=== PATIENT | female | born 2000 | race Caucasian/White ===

== ENCOUNTER 2025-07-08 09:26 | Emergency (ER) | payer OTHER, SELFPAY ==
--- NOTE | ~2025-07-08 | CT_ITS ---
EXAMINATION: CT ANGIOGRAM HEAD AND NECK CLINICAL INFORMATION: 25-year-old female, slurring of speech, numbness of left arm. COMPARISON: None available. TECHNIQUE: Noncontrast axial imaging of the head was performed. This was followed by test bolus sequences and head and neck intravenous bolus administration 70 mL of Omnipaque 350. Helical imaging was performed in the axial plane from the aortic arch to the skull vertex. The data was processed at the sleep lab technologist's workstation for generation of MIP sequences. Angled MIPs and volume rendered reformatted images were also generated at an offline 3D workstation. Stenoses are assessed in accordance with NASCET criteria unless otherwise indicated. This CT examination was performed using dose optimization techniques as appropriate, variously including the following: *Automated exposure control *Adjustment of mA and/or kV according to patient size (this includes techniques or standardized protocols for targeted exams where dose is matched to indication/reason for exam; i.e. extremities or head) *Use of iterative reconstruction technique FINDINGS: NONCONTRAST HEAD CT: There is no evidence of intracranial hemorrhage or extra-axial fluid collection. There is no mass effect, or edema. No CT evidence of acute territorial infarct. Ventricles, sulci, and cisterns are normal in size and configuration for patient age. No hydrocephalus. No midline shift. No significant white matter abnormalities. Normal pituitary. Globes and orbital contents image normally. No extracranial soft tissue abnormalities. The paranasal sinuses, mastoid air cells, and tympanic cavities are normally aerated. No suspicious bony abnormalities. NECK CTA: -AORTIC ARCH: Normal in caliber. Mild atheromatous calcification. Three-vessel branching pattern. -GREAT VESSEL ORIGINS: Widely patent. No stenosis. -RIGHT COMMON CAROTID ARTERY: Normal in course and caliber to the level of the bifurcation. -CERVICAL RIGHT INTERNAL CAROTID ARTERY: Normal opacification without focal stenosis or occlusion. -LEFT COMMON CAROTID ARTERY: Normal in course and caliber to the level of the bifurcation. -CERVICAL LEFT INTERNAL CAROTID ARTERY: Normal opacification without focal stenosis or occlusion. -CERVICAL RIGHT VERTEBRAL ARTERY: Codominant. Normal in course and caliber into the skull base. -CERVICAL LEFT VERTEBRAL ARTERY: Codominant. Normal in course and caliber into the skull base. OTHER, SOFT TISSUES: -No lymphadenopathy or mass. No abnormal fluid collection or soft tissue swelling. -Normal thyroid. -Imaged superior mediastinal structures normal. -Imaged lung apices clear. CTA OF THE BRAIN: -INTRACRANIAL INTERNAL CAROTID ARTERIES: No focal stenosis or occlusion. -RIGHT ANTERIOR CEREBRAL ARTERY: Normal A1 segment.. Normal arborization of the distal segments. -LEFT ANTERIOR CEREBRAL ARTERY: Normal A1 segment.. Normal arborization of the distal segments. -ANTERIOR COMMUNICATING ARTERY: Normal. -RIGHT MIDDLE CEREBRAL ARTERY: Normal M1 segment of the MCA without focal stenosis or occlusion. Normal bifurcation. Normal arborization of the distal segments. -LEFT MIDDLE CEREBRAL ARTERY: Normal M1 segment of the MCA without focal stenosis or occlusion. Normal bifurcation. Normal arborization of the distal segments. -RIGHT VERTEBRAL ARTERY V4: Normal in course and caliber. -LEFT VERTEBRAL ARTERY V4: Normal in course and caliber. -BASILAR ARTERY: Normal without focal stenosis or occlusion. Normal appearance of the proximal superior cerebellar arteries. Normal basilar tip. -RIGHT POSTERIOR CEREBRAL ARTERY: Normal P1 segment. Normal opacification of the distal OCEAN FREIGHT AGENT segments. -LEFT POSTERIOR CEREBRAL ARTERY: Normal P1 segment. Normal opacification of the distal OCEAN FREIGHT AGENT segments. -POSTERIOR COMMUNICATING ARTERIES: Present and patent bilaterally. Normal opacification of the superior sagittal, straight, transverse, and sigmoid sinuses. No venous thrombosis. CT/CT angio head neck IMPRESSION: NON-CONTRAST HEAD CT: 1. No acute intracranial abnormality. No intracranial hemorrhage or mass effect. No CT evidence of acute territorial infarct. No white matter attenuation abnormalities. CTA NECK: 1. No evidence of significant stenosis, occlusion, dissection, or aneurysm in the major cervical arterial vasculature. 2. No venous thrombosis. CTA HEAD: 1. No evidence of significant stenosis, occlusion, dissection, or aneurysm in the major intracranial arterial vasculature. 2. Patent major cortical and dural venous sinuses. Electronically signed by: Mateus Matos MD 07/08/2025 11:31 AM EDT
[2025-07-08 09:36] VITALS: BP 123/87; PULSE 79; RESP 16; TEMP 36.2; O2SAT 99; BMI 25.6
--- NOTE | 2025-07-08 09:47 | PC.NURSE ---
patient presents to the ED after an approx 1 min episode at work where she had slurred speech and left arm weakness witnessed by coworker. patient states she has had a migraine x2days. patient states she is not currently on a migraine medication, has not seen neurology since age 9. patient is alert and oriented x4 ambulatory, patient speech is clear, speaking in clear full sentences. patient face symmetrical. patient has no weakness noted. patient placed on tele monitor, rate in the 90s, normal sinus rhythm. patient states she gets migraine with aura of seeing spots, but no aura today. patient states pain is 5/10.
--- NOTE | 2025-07-08 09:54 | ED_ITS ---
HPI - General Adult General Chief complaint: Headache Stated complaint: slurred speech earlier, mini stroke ? Time Seen by Provider: 07/08/25 09:40 Source: patient, RN notes reviewed and old records reviewed Mode of arrival: ambulatory Limitations: no limitations History of Present Illness ED Provider: TWAN Cunningham HPI narrative: 25-year-old female without significant medical history presents to the ED due to an episode of speech slurring, with left arm numbness and weakness, that lasted approximately 1 minute. Patient states she was at work talking to her co-worker when she noticed slurred speech, difficulty finding words, with left face numbness and left arm numbness and weakness. Patient states her left arm was sitting on lap and noticed it flop to the side and she was unable to move it. Patient sates she has history of migraines and has had mild migraine for past 2 days without aura. Denies chest pain, SOB, visual changes MD complaint: episode of speech slurring, L arm numbness and weakness Related Data Allergies Allergy/AdvReac Type Severity Reaction Status Date / Time Penicillins (PENICILLINS) Allergy Unknown HIVES Verified 07/08/25 09:36 Review of Systems 2 Review of Systems: CONST: Negative for fever, body aches and chills. HENT: Negative for neck pain/stiffness, headache, congestion, sore throat, swelling. EYES: Negative for discharge/pain or vision changes. RESP: Negative for cough/hemoptysis and shortness of breath. CV: Negative chest pain, difficulty breathing, palpitations. ABD: Negative pain, nausea, vomiting. : Negative increase frequency, dysuria, blood in urine or stool. MUSC: Negative for muscle aches, edema. SKIN: Negative rash, lesions/sores. NEURO: Negative dizziness, weakness. POS headache Yes all other systems are reviewed and are negative PMFSH Past Medical History Attestation statement: The following information was validated with the patient. Source: old records reviewed and nursing notes reviewed Social History Social History Advance Directives: No Advance Directives Information Provided: Yes Physical Exam ED Vital Signs: Vital Signs - 24 hr 07/08/25 09:36 07/08/25 11:14 07/08/25 12:00 Temperature 97.1 F 98.1 F Pulse Rate 79 66 76 Respiratory Rate 16 16 18 Blood Pressure 123/87 108/70 109/85 Pulse Oximetry 99 99 98 Oxygen Delivery Method Room Air Room Air BMI result Body Mass Index 25.6 GENERAL APPEARANCE: ?AxOx4, generally well-appearing, no acute distress. HEENT: ?NC, AT. MMM. EOMI, clear conjunctiva, oropharynx clear. NECK: ?Supple without lymphadenopathy.? No stiffness or restricted ROM. HEART:? Normal rate and regular rhythm, normal S1/S2, no m/r/g LUNGS:? CTAB, moving air well. No crackles or wheezes are heard. ABDOMEN: ?Soft, nontender, nondistended with good bowel sounds heard. BACK: No CVAT, no obvious deformity. EXTREMITIES: ?Without cyanosis, clubbing or edema. NEUROLOGICAL: ?Grossly nonfocal. Alert and oriented, moving all 4 extremities. 5/5 strength of upper extremities, 5/5 strength of lower extremities, SILT of UE and LE, no pronator drift, no speech slurring, able to heel and toe walk, ambulating without ataxic gait. NIH scale of 0 Skin: ?Warm and dry without any rash. NIH Stroke Scale Internal: Initial- Upon Arrival Time: 10:05 Level of Consciousness: Alert Level of Consciousness Questions: Answers both questions correctly Level of Consciousness Commands: Performs both tasks correctly Best Gaze: Normal Visual: No visual loss Facial Palsy: Normal Motor Arm (Right): No drift Motor Arm (Left): No drift Motor Leg (Right): No drift Motor Leg (Left): No drift Limb Ataxia: Absent Sensory: Normal Best Language: No aphasia Dysarthia: Normal Extinction and Inattention: No abnormality Score: 0 Medications Administered Discontinued Medications Generic Name Dose Route Start Last Admin Trade Name Freq PRN Reason Stop Dose Admin Lactated Ringer's 1,000 mls @ 999 mls/hr 07/08/25 10:37 07/08/25 12:02 Lr IV 07/08/25 11:37 Infused .Q1H1M ONE Infusion Acetaminophen 1,000 mg in 100 mls @ 400 mls/hr 07/08/25 11:40 07/08/25 12:13 Ofirmev IV 07/08/25 11:54 Infused ONCE ONE Infusion Iohexol 100 ml 07/08/25 10:55 07/08/25 10:56 Iohexol 350 Mg/Ml 100 Ml Infus..Btl IV 07/08/25 10:56 70 ml ONCE ONE Administration Ketorolac Tromethamine 30 mg 07/08/25 11:40 07/08/25 11:46 Ketorolac Tromethamine 30 Mg/Ml Vial IVPUSH 07/08/25 11:41 30 mg ONCE ONE Administration Medical Decision Making Medical Decision Making MDM Narrative: 25-year-old female without significant medical history with 1 minute episode of speech slurring, left arm numbness and weakness, left face numbness that occurred while at work. Patient has had mild migraine over the last 2 days without aura. VS on initial observation- BP 123/87, pulse rate of 79, respiratory rate of 16, afebrile with oral temp of 97.1?, O2 saturation 99% on room air. Physical exam was unremarkable, lungs clear to auscultation bilaterally, cardiac exam with normal rate and rhythm, no murmurs/rubs/gallops, abdomen soft, nondistended, no rigidity, no tenderness. Neuro exam without focal neurological deficits, no upper extremity or lower extremity weakness strength 5/5 of UE and LE bilaterally, SILT intact of both UE and LE, no facial droop, no speech slurring noted, no pronator drift, patient able to perform heel and toe walking without deficit, ambulating without ataxic gait. Plan: Labs, EKG, CT angio head/neck Course EKG reveals normal sinus rhythm, without arrhythmia, lengthened QT, ST- elevation/depression, T-wave abnormality, initial troponin undetectable at >2.7, patient without chest pain- dysrhythmia less likely Labs without leukocytosis/leukopenia, H&H stable, no electrolyte abnormality. HCG quant negative. CTA head/neck negative for acute intracranial abnormality/cervical arterial vasculature. At this time symptoms correlate clinically with hemiplegic migraine. Patient is being medicated with IV fluids, 30 mg IV toradol and 1g IV tylenol for symptoms. Patient had another episode of L lower lip numbness that lasted a few minutes and then resolved. Patients headache is improved at this time. I counseled patient on hemiplegic migraines causing neuological symptoms. I counseled patient to follow up with her PCP and to get established with neurology as I placed consult for her. She feels comfortable to go home for self care. I counseled her on strict return precautions. Patient is in agreement with the plan. Differential Diagnosis Differential Diagnoses: The differential diagnosis associated with the presentation includes Stroke TIA Dysrhythmia Migraine headache Admission/Observation Consideration of admission/observation: Escalation of care including admission/observation considered Lab Data MDM Lab Attestation statement: I reviewed the patient's lab results. 07/08/25 10:07 07/08/25 10:07 Labs: Lab Results 07/08/25 Range/Units 10:07 WBC 8.7 (4.8-10.8) X10*3/uL RBC 4.87 (4.20-5.50) X10*6/uL Hgb 13.8 (12.0-16.0) g/dl Hct 40.9 (37.0-47.0) % MCV 84.0 (80.0-98.0) fL MCH 28.3 (27.0-33.0) pg MCHC 33.7 (31.0-35.0) g/dl RDW 12.4 (11.0-16.0) % Plt Count 259 (160-400) X10*3/uL MPV 10.5 (9.4-12.3) fL Immature Gran % (Auto) 0.2 (0.0-0.4) % Neut % (Auto) 64.4 (45-73) % Lymph % (Auto) 22.5 (20-40) % Gates % (Auto) 7.4 (2-11) % Eos % (Auto) 4.5 H (0-4) % Baso % (Auto) 1.0 (0-2) % Lymph # (Auto) 2.0 (1.2-4.9) X10*3/uL Gates # (Auto) 0.6 (0.1-1.2) X10*3/uL Eos # (Auto) 0.4 (0.0-0.4) X10*3/uL Baso # (Auto) 0.1 (0.0-0.2) X10*3/uL Abs Immat Gran (auto) 0.02 (0.00-0.03) X10*3/uL Absolute Neuts (auto) 5.6 (2.0-8.3) x10*3/uL Absolute Nucleated RBC 0.000 (0.0-0.012) X10*3/uL Nucleated RBC % (auto) 0.0 (0.0-0.2) /100WBC Sodium 140 (135-145) mmol/L Potassium 4.2 (3.3-5.1) mmol/L Chloride 108 (96-108) mmol/L Carbon Dioxide 26 (22-29) mmol/L Anion Gap 10 L (12-20) BUN 6 L (9-16) mg/dL Creatinine 0.58 (0.5-1.4) mg/dL Estim Creat Clear Calc 127.5 Estimated GFR > 60 Random Glucose 87 (60-115) mg/dL Calcium 9.2 (8.4-10.2) mg/dL Magnesium 1.9 (1.6-2.6) mg/dL Total Bilirubin 0.4 (0.0-1.0) mg/dL AST 20 (5-31) U/L ALT 13 (0-31) U/L Alkaline Phosphatase 73 (39-117) U/L Troponin I High Sens < 2.7 (<3.5-17.0) ng/L Total Protein 7.4 (6.5-8.0) g/dL Albumin 4.7 (3.5-5.0) g/dL Beta HCG, Quant < 2 mIU/mL Independent Interpretation I performed an independent interpretation of an: EKG and CT Scan Interpretation: I personally interpreted the EKG which revealed normal sinus rhythm without ST- elevation/depression, T-wave abnormality, lengthened QT, arrhythmia Vent. Rate : 62 BPM Atrial Rate : 62 BPM P-R Int : 154 ms QRS Dur : 78 ms QT Int : 388 ms P-R-T Axes : 36 57 46 degrees QTcB Int : 393 ms Normal sinus rhythm Normal ECG No previous ECGs available I personally interpreted the CTA head/neck which was negative for thrombus, and revealed patent cervical vasculature, I agree with the radiologist's interpretation Radiology Impression Discussion of test interpretation with radiology: I have reviewed the radiologist's reading. Radiologist Impression: CTA head/neck FINDINGS: NONCONTRAST HEAD CT: There is no evidence of intracranial hemorrhage or extra-axial fluid collection. There is no mass effect, or edema. No CT evidence of acute territorial infarct. Ventricles, sulci, and cisterns are normal in size and configuration for patient age. No hydrocephalus. No midline shift. No significant white matter abnormalities. Normal pituitary. Globes and orbital contents image normally. No extracranial soft tissue abnormalities. The paranasal sinuses, mastoid air cells, and tympanic cavities are normally aerated. No suspicious bony abnormalities. NECK CTA: -AORTIC ARCH: Normal in caliber. Mild atheromatous calcification. Three-vessel branching pattern. -GREAT VESSEL ORIGINS: Widely patent. No stenosis. -RIGHT COMMON CAROTID ARTERY: Normal in course and caliber to the level of the bifurcation. -CERVICAL RIGHT INTERNAL CAROTID ARTERY: Normal opacification without focal stenosis or occlusion. -LEFT COMMON CAROTID ARTERY: Normal in course and caliber to the level of the bifurcation. -CERVICAL LEFT INTERNAL CAROTID ARTERY: Normal opacification without focal stenosis or occlusion. -CERVICAL RIGHT VERTEBRAL ARTERY: Codominant. Normal in course and caliber into the skull base. -CERVICAL LEFT VERTEBRAL ARTERY: Codominant. Normal in course and caliber into the skull base. OTHER, SOFT TISSUES: -No lymphadenopathy or mass. No abnormal fluid collection or soft tissue swelling. -Normal thyroid. -Imaged superior mediastinal structures normal. -Imaged lung apices clear. CTA OF THE BRAIN: -INTRACRANIAL INTERNAL CAROTID ARTERIES: No focal stenosis or occlusion. -RIGHT ANTERIOR CEREBRAL ARTERY: Normal A1 segment.. Normal arborization of the distal segments. -LEFT ANTERIOR CEREBRAL ARTERY: Normal A1 segment.. Normal arborization of the distal segments. -ANTERIOR COMMUNICATING ARTERY: Normal. -RIGHT MIDDLE CEREBRAL ARTERY: Normal M1 segment of the MCA without focal stenosis or occlusion. Normal bifurcation. Normal arborization of the distal segments. -LEFT MIDDLE CEREBRAL ARTERY: Normal M1 segment of the MCA without focal stenosis or occlusion. Normal bifurcation. Normal arborization of the distal segments. -RIGHT VERTEBRAL ARTERY V4: Normal in course and caliber. -LEFT VERTEBRAL ARTERY V4: Normal in course and caliber. -BASILAR ARTERY: Normal without focal stenosis or occlusion. Normal appearance of the proximal superior cerebellar arteries. Normal basilar tip. -RIGHT POSTERIOR CEREBRAL ARTERY: Normal P1 segment. Normal opacification of the distal EXECUTIVE STAFF ASSISTANT segments. -LEFT POSTERIOR CEREBRAL ARTERY: Normal P1 segment. Normal opacification of the distal EXECUTIVE STAFF ASSISTANT segments. -POSTERIOR COMMUNICATING ARTERIES: Present and patent bilaterally. Normal opacification of the superior sagittal, straight, transverse, and sigmoid sinuses. No venous thrombosis. CT/CT angio head neck IMPRESSION: NON-CONTRAST HEAD CT: 1. No acute intracranial abnormality. No intracranial hemorrhage or mass effect. No CT evidence of acute territorial infarct. No white matter attenuation abnormalities. CTA NECK: 1. No evidence of significant stenosis, occlusion, dissection, or aneurysm in the major cervical arterial vasculature. 2. No venous thrombosis. CTA HEAD: 1. No evidence of significant stenosis, occlusion, dissection, or aneurysm in the major intracranial arterial vasculature. 2. Patent major cortical and dural venous sinuses. Electronically signed by: Mateus Matos MD 07/08/2025 11:31 AM EDT Dictated By: Mateus Matos MD Signed By: <Electronically signed by Mateus Matos MD in OV> 07/08/25 1131 External Record Review External record reviewed: Inpatient record, Office record and Outpatient record Chronic Conditions Patient?s care impacted by: Other (Migraine) Discharge Plan Discharge Clinical Impression: Headache, hemiplegic migraine Patient Disposition: Home, Self-Care Instructions: Migraine Headache (ED) Additional Instructions: You were evaluated in the ED today after experiencing an episode of speech slurring, left arm numbness, left-sided facial numbness. Your lab work was reassuring no evidence of anemia or electrolyte imbalance. Your EKG revealed normal sinus rhythm, your troponin which is an enzyme in the heart is under stress or damage was negative. CT angiogram of your head and neck was negative for thrombus, intracranial hemorrhage, and revealed patent cervical arteries and veins. I believe your symptoms occurred today from a hemiplegic migraine, which can trigger neurological deficits like weakness, numbness, speech slurring. You were medicated in the department with IV fluids, 30 mg IV Toradol, 1 g IV Tylenol. I will place referral to Neurology for you, you need to call their office they will not call you. Additionally I believe you should follow up with your primary care doctor to ensure your migraines are adequately managed. Please return to the ED if you experience fevers over 100.4?, chest pain, shortness of breath, worsening numbness or tingling of your extremities/face, numbness or tingling occurring in other places, or any new/worsening/concerning symptoms. Referrals: [facility] – [place], [place] Neuro/Sleep [Provider Group] Print Language: Australian
[2025-07-08 10:11] LABS: MANUAL DIFF FLAG NO
[2025-07-08 10:12] LABS: Hematocrit 40.9 % (37.0-47.0); Hemoglobin 13.8 g/dl (12.0-16.0); Imm Gran Abs Auto 0.02 X10*3/uL (0.00-0.03); Imm Gran Pct Auto 0.2 % (0.0-0.4); Lymphocytes Absolute Auto 2.0 X10*3/uL (1.2-4.9); Mean Corpuscular HGB Conc 33.7 g/dl (31.0-35.0); Mean Corpuscular Hemoglobin 28.3 pg (27.0-33.0); Mean Corpuscular Volume 84.0 fL (80.0-98.0); NRBC Abs Auto 0.000 X10*3/uL (0.0-0.012); NRBC Pct Auto 0.0 /100WBC (0.0-0.2); Platelet Count 259 X10*3/uL (160-400); Red Blood Count 4.87 X10*6/uL (4.20-5.50); White Blood Count 8.7 X10*3/uL (4.8-10.8)
--- NOTE | 2025-07-08 10:12 | ECG_ITS ---
Test Reason : WEAKNESS Blood Pressure : */* mmHG Vent. Rate : 62 BPM Atrial Rate : 62 BPM P-R Int : 154 ms QRS Dur : 78 ms QT Int : 388 ms P-R-T Axes : 36 57 46 degrees QTcB Int : 393 ms Normal sinus rhythm Normal ECG No previous ECGs available Referred By: Timi Cunningham Electronically Signed By: SKIP SANTANA
[2025-07-08 10:27] LABS: Alanine Aminotransferase 13 U/L (0-31); Albumin Level 4.7 g/dL (3.5-5.0); Anion Gap 10 (12-20); Aspartate Amino Transferase 20 U/L (5-31); Blood Urea Nitrogen 6 mg/dL (9-16); Calcium 9.2 mg/dL (8.4-10.2); Carbon Dioxide 26 mmol/L (22-29); Chloride 108 mmol/L (96-108); Creatinine Clr Calc Pharmacy 127.5; Estimated Glomerular Filt Rate > 60; Magnesium 1.9 mg/dL (1.6-2.6); Potassium 4.2 mmol/L (3.3-5.1); Sodium 140 mmol/L (135-145); Total Protein 7.4 g/dL (6.5-8.0)
[2025-07-08 10:52] LABS: Alkaline Phosphatase 73 U/L (39-117)
[2025-07-08] MEDS: iohexoL 350 MG/ML 100 ML INFUS..BTL IV (10:56)
[2025-07-08] MEDS: Lactated Ringers 1,000 ML 999 ML IV (10:59)
[2025-07-08 11:14] VITALS: BP 108/70; PULSE 66; RESP 16; TEMP 36.7; O2SAT 99
[2025-07-08 12:00] VITALS: BP 109/85; PULSE 76; RESP 18; O2SAT 98
--- NOTE | 2025-07-08 12:02 | PC.NURSE ---
patient states she felt left sided facial numbness, ED provider called to bedside. patient face symmetrical, left lip feels numb, equal grounds person bilat
[2025-07-08 12:03] LABS: Troponin-I High Sensitivity < 2.7 ng/L (<3.5-17.0)
--- OUTSIDE RECORDS SUMMARY | 2025-07-08 12:48 | XMS_ITS | Clinical Summary ---
Author Organization [facility] Address [address] [place] [address] Care Team Providers Care Cad Engineer Name Role Phone Alvaro Shearer MD Primary Care Provider Allergies Active Allergy Reactions Criticality Noted Date Comments Penicillins Rash 08/04/2016 Medications hydrOXYzine HCL (ATARAX) 10 mg tablet Take 1 Tablet by mouth 3 times daily as needed for Anxiety. 08/01/2024 Active Active Problems Problem Noted Date Diagnosed Date Palpitations 01/28/2021 Overview (10/20/2024): Last Assessment & Plan: We did discuss her palpitations and tachycardia. Is unclear what the etiology of these are at this time. We did discuss that this could be a inappropriate sinus tachycardia. We did discuss that this could be due to atrial arrhythmia. We also discussed that this could be a POTS variant. I did do orthostatics on her in the office and these were normal. Her heart rate stayed stable as well as her blood pressure. She had normal blood work with a normal CBC and TSH. She had a Holter monitor which showed some sinus tachycardia and this is when she had her symptoms but no other arrhythmias. At this point we discussed behavioral modifications that she can follow to help to improve her symptoms. We did discuss that if things worsen she needs to call us and let us know and we will do further evaluation and testing. Her birthday, wedding and nursing test are all going to happen within the next month and hopefully this reduction and stress will help as well. 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 V24, [facility] V28) 08/04/2016 Overview (10/20/2024): Mild pauciarticular JRA Vitamin D deficiency 08/04/2016 Encounters Date Type Department Care Team Description 07/08/2025 Telephone Adult Medicine [address] [address] Jessi Paulino MA from Last 3 Months Immunizations Name Administration Dates Next Due DTaP (Infanrix) 6wks to less than 7yo ,07/05/1999,1998,08/03,1998 [id number] (Pentacel) 2mo to less than 5yo 08/29/2000,04/04/1999,1998,05/31 HPV, Quadrivalent 07/29/2011,08/30/2010,06/20/20 10 Hepatitis A Pediatric (Havri x; Vaqta) 12mo to less than 19yo 07/30/2014,08/12/2013 Hepatitis B Pediatric (Enger ix B; Recombivax HB) to less than 20 yo 08/29/2000,04/04/1999,1998 IPV Inactivated polio (Ipol) 6wks and older 05/05/2002,04/04/1999,1998,05/31 Influenza Quadravalent, MDCK , 0.5ml, preservative free (Flucelvax) 6mo and older 07/31/2023,10/03/2018 Influenza trivalent, 0.5mL, preservative free (Fluarix; FluLaval; Fluzone) ages 6mo and older (Afluria) 3 years and older 08/01/2024,10/13/2016 MMR, measles mumps and rubel la Live (Priorix; M-M-R II) 12mo and older 05/05/2002,07/05/1999 Meningococcal MCV4P 07/30/2014,06/20/2010 Tdap Tetanus diptheria acell ular pertussis (Boostrix; Adacel) 7yo and older 06/18/2019,05/07/2009 Varicella live (Varivax) 12m o and older 05/15/2008,04/04/1999 Surgical History Surgery Date Site/Laterality Comments WISDOM TOOTH EXTRACTION 2022 PROCEDURE: HISTORICAL WISDOM TEETH EXTRACTION; COMMENT: all 4 Medical History Medical History Date Comments 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 V24, [facility] V28) 08/04/2016 DX:JRA (juvenile rheumatoid arthritis) ([facility]); COMMENT: Mild pauciarticular JRA Family History Medical History Relation Name Comments Breast cancer Aunt maternal, BRCA negative Other: hyperlipidemia Father alcoho l No Known Problems Half-Sister 1 mat No Known Problems Half-Sister 2 mat No Known Problems Half-Sister 3 pat No Known Problems Half-Sister 4 pat No Known Problems Maternal Grandfather Breast cancer Maternal Grandmother Hypertension Maternal Grandmother asthma Breast cancer Mother BRCA negative Hypertension Mother anxiety Colon cancer Other 1 maternal second cousin age 42 Breast cancer Other 2 maternal great aunt age 70 No Known Problems Paternal Grandfather no contact Hypertension Paternal Grandmother migrain es Relation Name Status Comments Aunt Alive Father Alive Half-Sister 1 mat Alive Half-Sister 2 mat Alive Half-Sister 3 pat Alive Half-Sister 4 pat Alive Maternal Grandfather Alive Maternal Grandmother Mother Alive Other 1 Other 2 Paternal Grandfather Alive Paternal Grandmother Alive Social History Tobacco Use Types Packs/Day Years Used Date Smoking Tobacco: Never Smokeless Tobacco: Never Alcohol Use Standard Drinks/Week Comments Yes 0 (1 standard drink = 0.6 oz pur e alcohol) Comments Unknown Sex and Gender Information Value Date Recorded Sex Assigned at Not on file Legal Sex Female 1:31 AM EST Gender Identity Not on file Sexual Orientation Not on file Obstetrics History Last Filed Vital Signs Vital Sign Reading Time Taken Comments Blood Pressure 100/60 08/01/2024 2:11 PM EDT Pulse 87 08/01/2024 2:11 PM EDT Temperature - - Respiratory Rate - - Oxygen Saturation - - Inhaled Oxygen Concentration - - Weight 59.6 kg (131 lb 6.4 oz) 08/01/2024 2:11 P M EDT Height 147.3 cm (4' 10 ) 08/01/2024 2:11 PM EDT Body Mass Index 27.46 08/01/2024 2:11 PM EDT Plan of Treatment Health Maintenance Due Date Last Done Comments COVID-19 Vaccine (#1) 2003 Pneumococcal Vaccine: Pediatrics (0 to 5 Years) and At-Risk Patients (6 to 49 Years) (1 of 2 - PCV) 2017 Social Influencers of Health Screening 09/24/2022 Depression Screening 10/22/2024 Influenza Vaccine (#1) 2025 , 07/31/2023, 10/03/2018, Additional history exists Cervical Cancer Screening: Pap Smear 11/13/2026 11/13/2023, 11/13/2023, 11/13/2023 Cholesterol Screening (Lipid Panel) 07/31/2028 07/31/2023 DTaP,Tdap,and Td Vaccines (8 - Td or Tdap) 06/18/2029 06/18/2019, 05/07/2009, 05/05/2002, Additional history exists HIB Vaccines Completed 08/29/2000, 03/22, 1998, Additional history exists Hepatitis B Vaccines Completed 08/29/2000, 04/04/1999, 1998 IPV Vaccines Completed 05/05/2002, 05/2000, 04/04/1999, Additional history exists MMR Vaccines Completed 05/05/2002, 07/05/1999 Varicella Vaccines Completed 05/15/2008, 04/04/1999 HPV Vaccines Completed 07/29/2011, 06/2010, 06/20/2010 Hepatitis A Vaccines Completed 07/30/2014, 08/12/20 Meningococcal ACWY Vaccine Completed 07/30/2014, HIV Screening Completed 10/03/2018 Hepatitis C Screening Completed 10/03/2018 Gonorrhea/Chlamydia Screening Discontinued 11/13/2023 Meningococcal B Vaccine Aged Out No l onger eligible based on patient's age to complete this topic RSV Immunization Patients Under 20 months Aged Out No longer eligible based on patient's age to complete this topic Procedures Procedure Name Priority Date/Time Associated Diagnosis Comments PAP SMEAR Routine 11/13/2023 GONORRHEA/CHLAMYDIA SCRREENING Routine 11/13/2023 LIPID PANEL Routine 07/31/2023 HEPATITIS C SCREENING Routine 10/03/2018 HIV SCREENING Routine 10/03/2018 from Last 3 Months or Most Recently Relevant to Health Maintenance Results * Gonorrhea/Chlamydia Screening (11/13/2023) Gonorrhea/Chla mydia Screening abstracted Historical Provider HEALTH MAINTENANCE Final Result * Pap smear (11/13/2023) 11/13/2023 Narrative HISTORICAL TESTING LAB RESULTING AGENCY - 11/23/2023 8:35 AM EST [id number] THINPREP PAP, IMAGED: NEGATIVE FOR SQUAMOUS INTRAEPITHELIAL LESION AND MALIGNANCY . AIME SCHWARTZ(ASCP) (CASE ELECTRONICALLY SIGNED 11 22 2023) ADEQUACY: SATISFACTORY ENDOCERVICAL/TRANSFORMATION ZONE COMPONENT PRESENT. SOURCE: THINPREP PAP HPV IF ASCUS, CERVICAL, IMAGED CLINICAL INFORMATION: HPV IF DIAGNOSIS OF ASCUS. PAP HX NEGATIVE, [[id number]] Shannon Kay CNM LAB CYTOLOGY ORDERABLES Final R esult HISTORICAL TESTING LAB RESULTING AGENCY * Lipid panel (07/31/2023) LDL/HDL Ratio 3 0 - 4 Triglycerides 54 0 - 150 mg/dL Cholesterol 153 0 - 200 mg/dL HDL 53 >=40 mg/dL LDL Cholesterol 90 0 - 100 mg/dL Blood Venous blood specimen / Unknown Historical Provider LAB BLOOD ORDERABLES Lucretia l Result * HIV Screening (10/03/2018) HIV Screening abstracted Historical Provider HEALTH MAINTENANCE Final Result * Hepatitis C Screening (10/03/2018) Hepatitis C Screening abstracted us Historical Provider HEALTH MAINTENANCE Final Result from Last 3 Months or Most Recently Relevant to Health Maintenance Care Teams Cad Engineer Relationship Specialty Start Date End Date Alvaro Sheraer MD [address] [place] [address] PCP - General 05/25/23
--- OUTSIDE RECORDS SUMMARY | 2025-07-08 12:48 | XMS_ITS | Encounter Summary ---
Author Organization [facility] Address [address] [place] [address] Care Team Providers Care Stitch Separator Name Role Phone Alvaro Shearer MD Primary Care Provider Encounter Details Date Type Department Care Team (Late st Contact Info) Description 07/08/2025 Telephone Adult Medicine [facility] [address] [place] [address] Jessi Paulino MA Social History Tobacco Use Types Packs/Day Years Used Date Smoking Tobacco: Never Smokeless Tobacco: Never Alcohol Use Standard Drinks/Week Comments Yes 0 (1 standard drink = 0.6 oz pur e alcohol) Comments Unknown Sex and Gender Information Value Date Recorded Sex Assigned at Not on file Legal Sex Female 1:31 AM EST Gender Identity Not on file Sexual Orientation Not on file documented as of this encounter Plan of Treatment Not on file documented as of this encounter Visit Diagnoses Not on filedocumented in this encounter Care Teams Stitch Separator Relationship Specialty Start Date End Date Alvaro Shearer MD [address] [place], [place] PCP - General 05/25/23 documented as of this encounter
== END 2025-07-08 12:58 | disposition home or self-care (01) ==
PROVIDERS: Emergency Provider Emergency Medicine; PCP Internal Medicine
DX: G43.409 Hemiplegic migraine, not intractable, without status migrainosus (principal); R47.81 Slurred speech; R20.0 Anesthesia of skin; R11.0 Nausea; R10.2 Pelvic and perineal pain; Z79.899 Other long term (current) drug therapy
CPT/HCPCS: 36415; 70496; 70498; 80053; 83735; 84484; 84702; 85025; 93005; 96361; 96365; 96375; 99284; 99285; J0131; J1885; J7120; Q9967

== ENCOUNTER → 2025-07-08 09:56 | Outpatient (BNV) | payer OTHER, SELFPAY | PROVIDERS: Emergency Provider Emergency Medicine; PCP Internal Medicine; Visit Provider Radiology Diagnostic Radiology | DX: R20.2 Paresthesia of skin (principal); R47.81 Slurred speech | CPT/HCPCS: 70496; 70498 ==

== ENCOUNTER → 2025-07-08 10:12 | Outpatient (BNV) | payer OTHER, SELFPAY | PROVIDERS: Emergency Provider Emergency Medicine; PCP Internal Medicine; Visit Provider Internal Medicine | DX: R53.1 Weakness (principal) | CPT/HCPCS: 93010 ==

== ENCOUNTER 2025-07-27 08:05 | Outpatient (AMB) | payer OTHER, SELFPAY ==
--- NOTE | 2025-07-27 08:06 | A.OFFVIS_ITS ---
Vital Signs 07/27/25 08:12 Height 4 ft 9.5 in Weight 124 lb BMI 26.4 BP 121/73 Blood Pressure Location Rt brachial Position Sitting Respiration 16 Pulse 86 Pulse Source Pulse Oximeter Intake Visit Reasons: Referred by [facility] (See internal notes) Housekeeping Aid Required: No Allergies Penicillins (PENICILLINS) Allergy (Unknown, Verified 07/08/25 09:36) HIVES Medication List - Last Reconciled 07/27/25 by Mojgan Jaquez CNP rimegepant (Nurtec ODT) 75 mg PO Q OTHER DAY PRN 30 days verapamil ER 120 mg PO BEDTIME 30 days HPI Comments Details: Alejandra is a 25-year-old female patient presenting to the clinic today upon referral from our emergency department for an episode of slurred speech with left arm weakness and numbness lasting approximately 1 minute. According to documentation, she has been at work talking to a co-worker when she noticed slurred speech, difficulty finding words, left facial numbness and left arm numbness and weakness. She did note history of migraine and had been experiencing migraine type headaches for approximately 2 days without auras leading up to this event. Her workup in the emergency room included a CTA of head and neck which was negative for any acute intracranial abnormalities. She was discharged home at baseline. She tells me today that she started having migraine as a child. She saw neurology as a child but has not seen neurology since. She has been dealing with her migraines since then. She feels that she almost always has some level of headache. She has a varying degree of pain but can reach 10/10 especially when the headache is preceded by a visual aura described as a silver squiggly line that grows and obscures her vision. The aura precedes the migraine and is generally resolved by the time her pain comes. Her migraines are becoming severe only about once per month. Her pain is often unilateral the right parietal area and can be pulsating. She also experiences light sensitivity, sound sensitivity, nausea, and dizziness. She tells me that her mother has had complex migraines in the past with aphasia, generalized weakness, and some confusion. Headache characteristics: Time of onset:childhood Location:Right sided Radiation:None Positional component:None Character:Throbbing Severity:Can reach 10/10 Duration:More severe migraines can last 12hrs Frequency:Daily but with more severe migraines occurring 2 times per month Acute aggravating factors:Unknown Acute relieving factors:Unknown Associated symptoms:Light and sound sensitivity, nasea, and dizziness Aura:Yes, visual (squiggly lines in vision), aphasia and cognative slowing Headache triggers:Unknown Relation to menses:Possibly Other related background information: Sleep:Reports that she gets adequate sleep but sometimes still feels tired in the morning. She snores only on occasion. Stressors:Some stressors in her home life. She is also a ful time RN Hydration: Drinks plenty of water Caffeine intake: Rarely. Not daily Alcohol intake:Socially Substance use: None Tobacco use:None Last eye exam: Within the last couple of months - did get glasses for some reduced visual acuity Last dental visit:Within the last 6 months. Denies clenching or grinding History of head injury:None Family planning considerations: No plans to become . Using condoms with her Past medication trials: Excedrine- Some benefit Tylenol- No benefit Ibuprofen- No benefit Prior workup: 07/08/2025 CT head/CTA head and neck- Normal [facility] Medical History (Updated 07/27/25 @ 09:03 by Mojgan Jaquez CNP) Headache, hemiplegic migraine Slurred speech Headache Social History (Updated 07/27/25 @ 08:13 by Ramona Gutierrez [facility]) Alcohol intake: current Comment: Social Patient Tobacco Use Status: Never used Tobacco Review of Systems Const All systems reviewed & are unremarkable except as noted in HPI and below Physical Exam Vital Signs: Last Vital Signs Pulse 86 07/27/25 08:12 Resp 16 07/27/25 08:12 BP 121/73 07/27/25 08:12 BMI result Body Mass Index 26.4 Const General: cooperative, healthy appearing, comfortable and no acute distress Nutritional Appearance: well nourished Orientation/consciousness: patient oriented x3 Limitations: no limitations HEENT Head: Yes normal to inspection and Yes normocephalic Eyes General: appearance normal, both eyes and all related structures Visual Goins: normal visual goins by confrontation Alignment and Position: alignment normal Periorbital: periorbital findings normal Eyelids: Yes eyelids normal Conjunctivae: conjunctivae normal Sclerae: sclerae normal Neck Neck: Yes normal visual inspection and Yes full ROM General: Yes no CVA tenderness Back/Spine/Pelvis Back: no CVA tenderness Cervical Spine: normal cervical lordosis Thoracic/Lumbar Spine: thoracic and lumbar spine normal to inspection Neuro General: patient oriented x3 and deep tendon reflexes 2+ bilaterally Cranial nerves: Yes CN's II-XII intact bilaterally and Yes Facial sensation intact/muscles of mastication intact Cognition (Neuro): normal cognition Gait exam (Neuro): Normal gait present Motor exam (neuro): 5/5 motor strength present throughout and no tremor noted Sensory Exam: double simultaneous stimulation for sensation normal Romberg Test: Negative Pupils: Normal pupillary reactivity/response: bilateral Psych Appearance: grossly normal Mental Status: mental status grossly normal Speech and movement: Normal speech and movement present and Clear speech present Affect: normal affect Attitude: cooperative Thought process: Normal thought process present Thought content: Normal thought content present Insight: Good insight present (Psych) Judgement: Good judgement present (Psych) Assessment & Plan Assessment & Plan (1) Headache, hemiplegic migraine: Code(s): G43.409 - Hemiplegic migraine, not intractable, without status migrainosus Category: Medical (2) Aphasia: Code(s): R47.01 - Aphasia Category: Medical (3) Hemiplegia: Code(s): G81.90 - Hemiplegia, unspecified affecting unspecified side Category: Medical Plan Alejandra is a 25-year-old female patient presenting to the clinic today upon referral from our emergency department for an episode of slurred speech with left arm weakness and numbness lasting approximately 1 minute. Her history is consistent with migraine/chronic migraine with more severe episodes occurring 1- 2 times per month often associated with visual auras but more recently accompanied by aphasia and some cognitive slowing preceding her migraine. She is not currently on any preventives and has not been on preventives in the past. We discussed some options including verapamil which he is agreeable to. I also provided her with samples of Nurtec today and sent for a prescription of Nurtec 75 mg as needed. She is not a good candidate for Triptan given her history of hemiplegia with her migraines. She has not had an MRI of the brain. I will have her get an MRI of the brain without contrast for baseline. She does note that she may have had some very brief staring/confusion during a recent migraine. If this happens again, could consider an EEG to rule out seizure. Follow up in 2 months or sooner if needed -MRI brain without contrast -Trial of Nurtec 75mg as needed for acute migraine treatment (1box samples given lot #: [id number], exp: 04/2027) -Trial of verapamil 120mg at bedtime for migraine preventive -Could consider EEG if there are any further staring episodes -Follow-up in 2 months or sooner if needed Orders: Orders MR head/brain wo con Today G43.409 - Hemiplegic migraine, not intractable, without status migrainosus, G81.90 - Hemiplegia, unspecified affecting unspecified side, R47.01 - Aphasia Medications: New verapamil ER 120 mg PO BEDTIME 30 caps 5RF 30 days rimegepant (Nurtec ODT) 75 mg PO Q OTHER DAY PRN 8 tabs 5RF migraine headache 30 days Coding Level of Care Code New Pt Level 4 (61134) Diagnoses Headache, hemiplegic migraine G43.409 Aphasia R47.01 Hemiplegia G81.90
[2025-07-27 08:12] VITALS: BP 121/73; PULSE 86; RESP 16; BMI 26.4
--- OUTSIDE RECORDS SUMMARY | 2025-07-27 08:16 | XMS_ITS | Encounter Summary ---
Author Organization [facility] Address [address] [place] [address] Care Team Providers Care Plater Production Name Role Phone Alvaro Shearer MD Primary Care Provider Encounter Details Date Type Department Care Team (Late st Contact Info) Description 07/08/2025 Telephone Adult Medicine [facility] [address] [place] [address] Jessi Paulino MA Social History Tobacco Use [...] on filedocumented in this encounter Care Teams Plater Production Relationship Specialty Start Date End Date Alvaro Shearer MD [address] [place], [place] PCP - General 05/25/23 documented as of this encounter
--- OUTSIDE RECORDS SUMMARY | 2025-07-27 08:16 | XMS_ITS | Clinical Summary ---
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 Vitamin D deficiency 08/04/2016 Encounters Date Type Department Care Team Description 07/08/2025 Telephone Adult Medicine [address] [address] Jessi Paulino MA from Last 3 Months Immunizations Immunization Administration Dates Next Due DTaP (Infanrix) 6wks to less than 7yo ,07/05/1999,1998,08/03,1998 [id number] (Pentacel) 2mo to less than 5yo 08/29/2000,04/04/1999,1998,05/31 [...] COMMENT: 05/26 JRA (juvenile rheumatoid art hritis) ([facility] V24, [facility] V28) 08/04/2016 DX:JRA (juvenile rheumatoid arthritis) ([facility]); COMMENT: Mild pauciarticular JRA Family History Medical [...] 06/18/2029 06/18/2019, 05/07/2009, 05/05/2002, Additional history exists RSV Immunization Adult Patients (1 - 1-dose 75+ series) 2073 HIB Vaccines Completed 08/29/2000, 03/22, 1998, Additional history exists Hepatitis B Vaccines Completed 08/29/2000, 04/04/1999, 1998 IPV Vaccines Completed 05/05/2002, 05/2000, 04/04/1999, Additional history exists MMR Vaccines Completed 05/05/2002, 07/05/1999 Varicella Vaccines Completed 05/15/2008, 04/04/1999 HPV Vaccines Completed 07/29/2011, 06/2010, 06/20/2010 Hepatitis A Vaccines Completed 07/30/2014, 08/12/20 13 Meningococcal ACWY Vaccine Completed 07/30/2014, HIV Screening Completed 10/03/2018 Hepatitis C Screening Completed 10/03/2018 Gonorrhea/Chlamydia Screening Discontinued 11/13/2023 Meningococcal B Vaccine Aged Out No l onger eligible based on patient's age to complete this topic RSV Immunization Patients Under 20 months Aged Out No longer eligible based on patient's age to complete this topic Procedures Procedure Name Priority Date/Time Associated Diagnosis Comments EXTERNAL CT REPORT 07/08/[address] REPORT 07/08/2025 PAP SMEAR Routine 11/13/2023 HM GONORRHEA/CHLAMYDIA SCRREENING Routine 11/13/2023 LIPID PANEL Routine 07/31/2023 HEPATITIS C SCREENING Routine 10/03/2018 HIV SCREENING Routine 10/03/2018 from Last 3 Months or Most Recently Relevant to Health Maintenance Results * External CT Report (07/08/2025) Only the most recent of2 resultswithin the time period is included. Anatomical Region Laterality Modality Computed Tomogra phy Provider [facility] PROCEDURES Final Result * Gonorrhea/Chlamydia Screening (11/13/2023) Gonorrhea/Chla mydia Screening abstracted Historical Provider HEALTH MAINTENANCE Final Result * Pap smear (11/13/2023) 11/13/2023 Narrative HISTORICAL TESTING LAB RESULTING AGENCY - 11/23/2023 8:35 AM EST [id number] THINPREP PAP, IMAGED: NEGATIVE FOR SQUAMOUS INTRAEPITHELIAL LESION AND MALIGNANCY . MELIA HESS , CT(ASCP) (CASE ELECTRONICALLY SIGNED 11 22 2023) ADEQUACY: [...] mg/dL Blood Venous blood specimen / Unknown [facility] Provider LAB BLOOD ORDERABLES Lucretia l Result * HIV Screening (10/03/2018) Pathologist [facility] HIV Screening abstracted [facility] Provider HEALTH MAINTENANCE Final Result * Hepatitis C Screening (10/03/2018) Pathologist [facility] Hepatitis C Screening abstracted [facility] Provider HEALTH MAINTENANCE Final Result from Last 3 Months or Most Recently Relevant to Health Maintenance Care Teams Director Of Veterans Affairs Relationship Specialty Start Date End Date Alvaro Shearer MD [address] [place] [address] PCP - General 05/25/23
== END 2025-07-27 09:00 | disposition home or self-care (01) ==
LOC: HO.HSM 08:06
PROVIDERS: PCP Internal Medicine; Visit Provider Nurse Practitioner
DX: G43.409 Hemiplegic migraine, not intractable, without status migrainosus (principal); R47.01 Aphasia; G81.90 Hemiplegia, unspecified affecting unspecified side
CPT/HCPCS: 99204

== ENCOUNTER 2025-09-08 15:17 | Inpatient (IN) | payer OTHER, SELFPAY ==
--- NOTE | ~2025-09-08 | CT_ITS ---
CLINICAL HISTORY: R sided abd pain CT abdomen and pelvis with contrast Comparison: None provided Findings: No consolidation or effusion. At the right mid to upper kidney there is a wedge like defect of contrast-enhancement associated subtle perinephric fat stranding. Gallbladder and solid organs are otherwise unremarkable. No bowel obstruction, pneumoperitoneum, or pneumatosis. Mesenteric vessels patent. Moderate stool. Uterus and ovaries unremarkable. Normal appendix. Uterus and ovaries unremarkable. Physiologic amount of fluid in the pelvis. No acute fracture. IMPRESSION: Small right mid to upper renal acute infarct. The main right renal artery and proximal segmental branches appear unremarkable. This abnormality is likely secondary to a small distal branch occlusion. This document has been electronically signed by: Vidya Ryan MD on 09/08/2025 23:09:03
--- NOTE | ~2025-09-08 | US_ITS ---
EXAMINATION: US LOWER EXTREMITY VEINS BILATERAL HISTORY: swelling COMPARISON: There are no prior studies available for comparison. TECHNIQUE: Duplex and color Doppler sonographic examination of the deep venous system of the bilateral lower extremities was performed. FINDINGS: The right common femoral, superficial femoral, and popliteal veins are patent demonstrating normal compressibility, spontaneous flow, and augmentation. There is a normal color and spectral Doppler waveform appearance of the visualized deep venous system above the knee. The posterior tibial and peroneal veins are patent. The left common femoral, superficial femoral, and popliteal veins are patent demonstrating normal compressibility, spontaneous flow, and augmentation. There is a normal color and spectral Doppler waveform appearance of the visualized deep venous system above the knee. The posterior tibial and peroneal veins are patent. US/US venous duplex LE BI IMPRESSION: No evidence of acute DVT in the bilateral lower extremities. Electronically signed by: Rayshawn Clinton MD 09/11/2025 12:49 PM [facility] [place]
--- NOTE | ~2025-09-08 | US_ITS ---
CLINICAL HISTORY: TIA US bilateral carotid duplex Comparison: None Provided Findings: Waveforms demonstrate normal pattern. Peak systolic velocities: Right CCA: 104 cm/s Right ICA: 153 cm/s ICA/CCA ratio: 1.5 Right ECA: Unremarkable Right vertebral artery flow antegrade. No significant plaque noted. Left CCA: 125 cm/s Left ICA: 132 cm/s ICA/CCA ratio: 1.1 Left ECA: Unremarkable Left vertebral artery flow antegrade. No significant plaque noted. Impression: No significant velocity altering stenosis This document has been electronically signed by: Uzair Guo MD on 09/09/2025 19:06:58
--- NOTE | ~2025-09-08 | CT_ITS ---
CLINICAL HISTORY: renal infarct, chest pain CT angiography chest with contrast. 3D Postprocessing. Comparison: CT/SR - CT ANGIO ABDOMEN PELVIS - 09/09/25 00:05 EST Findings: The heart size is normal. RV/LV ratio is normal. The thoracic aorta is normal caliber. No acute pulmonary emboli. Residual thymic tissue in the anterior mediastinum is incidental. No consolidation or effusion. Abdominal findings are discussed on the comparison. No acute fractures. IMPRESSION: No systemic arterial aneurysm or dissection. This document has been electronically signed by: Vidya Ryan MD on 09/09/2025 01:40:22
--- NOTE | ~2025-09-08 | CT_ITS ---
CLINICAL HISTORY: renal infarct CT angiography abdomen and pelvis with contrast. 3-D post processing. Comparison: CT/SR - CT ANGIO CHEST AORTA - 09/09/25 00:[address]/SR - CT ABDOMEN PELVIS W IV CON - 09/08/25 22:20 EST Findings: Aorta, mesenteric/renal arteries, and iliofemoral systems are within normal limits. Chest findings are discussed on the same day comparison. Small area of right renal infarct noted. Gallbladder and solid organs are otherwise unremarkable. No pneumoperitoneum or pneumatosis. Moderate stool. Uterus and ovaries unremarkable. Normal appendix. Physiologic amount of fluid in the pelvis. No acute fracture. IMPRESSION: 1. Widely patent systemic arterial system with no aneurysms or dissections. 2. The small area of right mid to upper renal infarct is again noted. This is likely due to distal small branch occlusion, however the underlying etiology is indeterminate. This document has been electronically signed by: Vidya Ryan MD on 09/09/2025 01:41:43
--- NOTE | ~2025-09-08 | US_ITS ---
US RENAL DOPPLER INDICATION: Renal infarct. COMPARISON: None. Correlation made with CT hemangioma abdomen and pelvis 09/09/2025. TECHNIQUE: Grayscale, color, and spectral Doppler ultrasound imaging of both kidneys was performed. FINDINGS: RENAL MEASUREMENTS: Right: 10.2 x 9.5 x 4.7 cm (Sag x AP x TV); the mid to upper pole is echogenic in keeping with the known renal infarct. No hydronephrosis. No suspicious masses. No calculi. Left: 10.3 x 6.0 x 5.2 cm (Sag x AP x TV); normal sonographic appearance. Spectral Doppler analysis: Right Kidney: -Peak systolic velocity in the proximal right renal artery = 96.9 cm/s. Normal waveforms. -Peak systolic velocity in the mid right renal artery = 93.1 cm/s. Normal waveforms. -Peak systolic velocity in the distal right renal artery = 92.7 cm/s. Normal waveforms. -Patent right renal vein. -Upper pole interlobar artery resistive index of 0.55. -Midpole interlobar artery resistive index of 0.62. -Lower pole interlobar artery resistive index of 0.60. RAR right = 1.04 Left Kidney: -Peak systolic velocity in the proximal left renal artery = 84.7 cm/s. Normal waveforms. -Peak systolic velocity in the mid left renal artery = 115.0 cm/s. Normal waveforms. -Peak systolic velocity in the distal left renal artery = 64.8 cm/s. Normal waveforms. -Patent left renal vein. -Upper pole interlobar artery resistive index of 0.57. -Mid pole interlobar artery resistive index of 0.58. -lower pole interlobar artery resistive index of 0.62. RAR left = 1.25 Aorta: -Peak systolic velocity = 92.2 cm/s. US/US renal doppler IMPRESSION: 1. No evidence of renal artery stenosis or abnormal waveforms bilaterally on color/spectral Doppler examination (based on peak systolic velocities and resistive indices). 2. Echogenic parenchyma in the right kidney mid to upper pole in keeping with the known renal infarct. Right kidney otherwise normal. 3. Normal-appearing left kidney. Electronically signed by: Mateus Matos MD 09/09/2025 09:43 AM EST
--- NOTE | ~2025-09-08 | MR_ITS ---
EXAMINATION: MR BRAIN WITHOUT CONTRAST CLINICAL INFORMATION: TIA versus stroke. COMPARISON: Correlated to CT angiogram of head and neck dated July 08, 2025. TECHNIQUE: MRI of the brain was obtained using routine sequences without contrast. FINDINGS: No restricted diffusion. No acute intracranial hemorrhage, mass effect, midline shift, hydrocephalus or herniation. Palacios-white matter differentiation is normal. Posterior cranial fossa contents demonstrated no signal abnormality or mass effect. Normal position of the cerebellar tonsils. Sellar/suprasellar region is normal. Flow-void signal within the main cerebral vessels is normal. MR/MR head/brain wo con IMPRESSION: No acute or structural brain abnormality. Normal exam. Electronically signed by: Augustine Meadows MD 09/09/2025 11:36 AM [facility]
[2025-09-08 15:38] VITALS: BP 124/83; PULSE 115; RESP 18; TEMP 36.6; O2SAT 98; BMI 26.8
--- NOTE | 2025-09-08 15:40 | ED.ABDPAIN ---
HPI - Abdominal Pain General Chief Complaint: Abdominal Pain Stated Complaint: Stomach Pain Time Seen by Provider: 09/08/25 21:12 Source: patient, family and old records reviewed Mode of arrival: ambulatory Limitations: no limitations History of Present Illness ED Provider: Dr. Ingrid Davis HPI narrative: 25-year-old female with history of migraine headaches presenting with right flank pain that began day before yesterday when she woke up. Admits that she had a migraine headache on Sunday night, took a dose of verapamil, prescribed by her neurologist. When she woke up the following morning, the headache persisted so she took a dose of Nurtec which resolved her migraine completely. Around that time, she developed some right flank pain that she assumed was associated with taking these 2 medications in short succession. Admits that the pain continued to the point where she is unable to move without discomfort so she came to the hospital for evaluation today. Pain has been constant since it started, worse with any movement or deep breaths. Pain is causing her to have decreased oral intake but she denies associated nausea or vomiting. She did vomit once with her migraine headache though. Denies bowel changes, urinary complaints, vaginal bleeding or discharge. She is about 2 weeks out from having her next menstrual cycle. No reported fever. Denies chest pain or difficulty breathing though she does have pain with deep inspiration in her right back and right upper quadrant abdomen. She works at [employer] for [employer] has been around a bunch of sick people lately. No specific sick contacts though. No recent travel. No exogenous estrogen use, family history of coagulopathy or early onset heart disease. Related Data Home Medications ?Medication ?Instructions ?Recorded ?Confirmed rimegepant 75 mg disintegrating 75 mg PO Q2D PRN migraine headache 09/09/25 09/09/25 tablet (Nurtec ODT) Previous Rx's ?Medication ?Instructions ?Recorded verapamil 120 mg 24 hr 120 mg PO BEDTIME 30 days #30 caps 07/27/25 capsule,extended release Allergies Allergy/AdvReac Type Severity Reaction Status Date / Time Penicillins (PENICILLINS) Allergy Unknown HIVES Verified 09/08/25 15:41 Review of Systems Review of Systems as per HPI, full review of systems performed and negative but for the above mentioned pertinent positives and negatives. [facility] Past Medical History Medical History Headache, hemiplegic migraine Slurred speech Headache Social History Social History Household Members: Spouse Housing: Apartment Do you presently have visiting nurse or other home services: No Alcohol intake: current Alcohol intake frequency: does not drink Comment: Social Patient Tobacco Use Status: Never used Tobacco service: No Physical Exam ED Exam Exam: GENERAL: Ill-Appearing, appears uncomfortable. SKIN: Normal skin color for ethnicity, warm, dry, no rashes noted. HEENT:? Normocephalic, atraumatic, no stridor, dry mucous membranes, dentition intact, EOMI. NECK: Soft, supple, full ROM, midline structures nontender, no step-offs, no deformities, no lymphadenopathy. CHEST: Heart regular tachycardia, no murmurs, symmetric chest rise and fall, right lower posterior chest wall tenderness to palpation with voluntary guarding, no crepitus, no midline spine tenderness in the thoracic spine. PULMONARY: Clear to auscultation bilaterally, diminished at the bases, no labored breathing, no wheezes/rhales/rhonchi. ABDOMINAL: Soft, nondistended, nontender, quiet bowel sounds in all quadrants. : Deferred. MUSCULOSKELETAL: Normal tone, full range of motion, no deformities, no peripheral edema. NEURO: Alert and oriented x3, CN II through XII intact, equal strength and sensation bilateral upper and lower extremities, no focal neurologic deficits.? PSYCHIATRIC: Flat affect, fluid speech, good eye contact and appropriate demeanor. Vital Signs: Vital Signs - 24 hr 09/08/25 15:38 09/08/25 18:18 09/08/25 20:19 Temperature 98 F 98.4 F 98.1 F Pulse Rate 115 H 100 89 Respiratory Rate 18 16 16 Blood Pressure 124/83 113/75 119/77 Pulse Oximetry 98 100 100 Oxygen Delivery Method Room Air Room Air Room Air 09/08/25 22:31 09/08/25 22:56 Temperature 98.4 F Pulse Rate 89 90 Respiratory Rate 16 20 Blood Pressure 116/70 125/85 Pulse Oximetry 99 Oxygen Delivery Method Room Air BMI result Body Mass Index 26.8 Course Course Course Narrative: This is an RME: Additional HPI, ROS, PE not included below will be deferred to primary provider. RME assessment and note performed by: Angelica Seo PA-C This is a 23-qobd-zxp-female, with a a hx of hemipleligic migraines, pushpa who presents to the ER with complaints of right sided abdominal pain since yesterday. endorsing some pain in the right flank. No urinary symptoms. Abdomen is soft Plan:labs, UA further ER eval needed Medical Decision Making Medical Decision Making MDM Narrative: Patient presented today with a chief complaint of flank pain.? Differential diagnosis is certainly broad and includes but is not limited to kidney stone, infection such as pyelonephritis, vascular pathology, among many others.? Patient received a dose of Toradol without much relief of her pain. CT pending. Added on a dose of morphine and Zofran. CT shows evidence of a right renal infarct that is acute. Given the acuity, continued back pain, we will obtain a CTA to evaluate for dissection or other acute arterial pathology. Patient has no history of clotting disorders, irregular heartbeat or hormone use. She does have a longstanding history of migraine headaches which has been an issue for almost her entire life. She was seen here about 2 months ago for a migraine headache associated with hemiplegia and slurred speech. Evidently her symptoms resolved prior to arrival in the emergency department and she was ultimately diagnosed with a migraine headache and hemiplegia. She has been seen by a neurologist since that time and has an MRI of the brain scheduled for next month. Given these new imaging findings, concern for potential TIA would have to be raised. That being said, her renal function is normal, electrolytes are all, blood pressure is also normal. Erring on the side of caution, I would like to admit her to the hospital for further care and evaluation, though it does not appear that we will be any acute procedure required to treat a distal renal infarct such as this. Lab Data 09/11/25 05:59 09/10/25 05:57 Labs: Lab Results 09/08/25 09/08/25 Range/Units 17:19 18:19 WBC 11.6 H (4.8-10.8) X10*3/uL RBC 4.48 (4.20-5.50) X10*6/uL Hgb 12.4 (12.0-16.0) g/dl Hct 38.1 (37.0-47.0) % MCV 85.0 (80.0-98.0) fL MCH 27.7 (27.0-33.0) pg MCHC 32.5 (31.0-35.0) g/dl RDW 12.3 (11.0-16.0) % Plt Count 211 (160-400) X10*3/uL MPV 10.5 (9.4-12.3) fL Immature Gran % (Auto) 0.3 (0.0-0.4) % Neut % (Auto) 71.7 (45-73) % Lymph % (Auto) 15.4 L (20-40) % Butler % (Auto) 8.6 (2-11) % Eos % (Auto) 3.5 (0-4) % Baso % (Auto) 0.5 (0-2) % Lymph # (Auto) 1.8 (1.2-4.9) X10*3/uL Butler # (Auto) 1.0 (0.1-1.2) X10*3/uL Eos # (Auto) 0.4 (0.0-0.4) X10*3/uL Baso # (Auto) 0.1 (0.0-0.2) X10*3/uL Abs Immat Gran (auto) 0.03 (0.00-0.03) X10*3/uL Absolute Neuts (auto) 8.3 (2.0-8.3) x10*3/uL Absolute Nucleated RBC 0.000 (0.0-0.012) X10*3/uL Nucleated RBC % (auto) 0.0 (0.0-0.2) /100WBC Sodium 140 (135-145) mmol/L Potassium 3.6 (3.3-5.1) mmol/L Chloride 108 (96-108) mmol/L Carbon Dioxide 26 (22-29) mmol/L Anion Gap 10 L (12-20) BUN 6 L (9-16) mg/dL Creatinine 0.55 (0.5-1.4) mg/dL Estim Creat Clear Calc 110.7 Estimated GFR > 60 Random Glucose 89 (60-115) mg/dL Calcium 9.4 (8.4-10.2) mg/dL Total Bilirubin 0.4 (0.0-1.0) mg/dL Direct Bilirubin 0.1 (0.0-0.5) mg/dL AST 34 H (5-31) U/L ALT 30 (0-31) U/L Alkaline Phosphatase 70 (39-117) U/L Total Protein 7.1 (6.5-8.0) g/dL Albumin 4.4 (3.5-5.0) g/dL Beta HCG, Quant < 2 mIU/mL Urine Color Yellow Urine Appearance Clear Urine pH 7.5 (5.0-9.0) Ur Specific [place] 1.010 (1.005-1.025) Urine Protein Negative (Neg-Trace) mg/dL Urine Glucose (UA) Negative (Negative) mg/dL Urine Ketones Negative (Negative) mg/dL Urine Blood Negative (Negative) Urine Nitrite Negative (Negative) Ur Leukocyte Esterase Negative (Negative) Medications Administered Generic Name Dose Route Start Last Admin Trade Name Marianoq PRN Reason Stop Dose Admin Acetaminophen 975 mg 09/09/25 02:01 09/10/25 08:41 Acetaminophen 325 Mg Tablet PO 975 mg Q6H PRN Administration Pain, Mild 1-3,fever,headache Lidocaine 1 patch 09/10/25 10:00 09/10/25 10:36 Lidocaine 4 % Patch Adh..Patch TRANSDERMA 1 patch DAILY AC Administration Protocol Ondansetron HCl 4 mg 09/09/25 02:01 09/10/25 12:04 Ondansetron Hcl 4 Mg/2 Ml Vial IVPUSH 4 mg Q8H PRN Administration Nausea and Vomiting Oxycodone HCl 5 mg 09/09/25 02:01 09/10/25 10:36 Oxycodone Hcl Immed Release 5 Mg Tablet PO 5 mg Q6H PRN Administration Pain, Moderate(Pain Scale 4-6) Sodium Chloride 3 ml 09/09/25 08:00 09/10/25 23:31 0.9 % Sodium Chloride Flush 3 Ml Syringe IVFLUSH 3 ml QSHIFT [facility] Administration Discontinued Medications Generic Name Dose Route Start Last Admin Trade Name Eddy PRN Reason Stop Dose Admin Lactated Ringer's 1,000 mls @ 999 mls/hr 09/08/25 21:53 09/09/25 00:04 Lr IV 09/08/25 22:53 Infused .Q1H1M ONE Infusion Iohexol 85 ml 09/08/25 22:22 09/08/25 22:23 Iohexol 350 Mg/Ml 100 Ml Infus..Btl IV 09/08/25 22:23 85 ml ONCE ONE Administration Iohexol 70 ml 09/09/25 00:08 09/09/25 00:13 Iohexol 350 Mg/Ml 100 Ml Infus..Btl IV 09/09/25 00:09 70 ml ONCE ONE Administration Ketorolac Tromethamine 15 mg 09/08/25 21:53 09/08/25 22:11 Ketorolac Tromethamine 15 Mg/Ml Vial IVPUSH 09/08/25 21:54 15 mg ONCE ONE Administration Morphine Sulfate 4 mg 09/08/25 22:38 09/08/25 22:56 Morphine Sulfate 4 Mg/Ml Cartridge IVPUSH 09/08/25 22:39 4 mg ONCE ONE Administration Protocol Ondansetron HCl 4 mg 09/08/25 22:38 09/08/25 22:56 Ondansetron Hcl 4 Mg/2 Ml Vial IVPUSH 09/08/25 22:39 4 mg ONCE ONE Administration Discharge Plan Discharge Clinical Impression: Renal infarction Patient Disposition: Admitted As Inpatient Interventions: Admission Worksheet (ED) Last Done: 09/09/25 16:49 Discharge Date/Time: 09/09/25 18:55
[2025-09-08 17:28] LABS: MANUAL DIFF FLAG NO
[2025-09-08 17:31] LABS: Hematocrit 38.1 % (37.0-47.0); Hemoglobin 12.4 g/dl (12.0-16.0); Imm Gran Abs Auto 0.03 X10*3/uL (0.00-0.03); Imm Gran Pct Auto 0.3 % (0.0-0.4); Lymphocytes Absolute Auto 1.8 X10*3/uL (1.2-4.9); Mean Corpuscular HGB Conc 32.5 g/dl (31.0-35.0); Mean Corpuscular Hemoglobin 27.7 pg (27.0-33.0); Mean Corpuscular Volume 85.0 fL (80.0-98.0); NRBC Abs Auto 0.000 X10*3/uL (0.0-0.012); NRBC Pct Auto 0.0 /100WBC (0.0-0.2); Platelet Count 211 X10*3/uL (160-400); Red Blood Count 4.48 X10*6/uL (4.20-5.50); White Blood Count 11.6 X10*3/uL (4.8-10.8)
[2025-09-08 17:51] LABS: Alanine Aminotransferase 30 U/L (0-31); Albumin Level 4.4 g/dL (3.5-5.0); Alkaline Phosphatase 70 U/L (39-117); Anion Gap 10 (12-20); Aspartate Amino Transferase 34 U/L (5-31); Blood Urea Nitrogen 6 mg/dL (9-16); Calcium 9.4 mg/dL (8.4-10.2); Carbon Dioxide 26 mmol/L (22-29); Chloride 108 mmol/L (96-108); Creatinine Clr Calc Pharmacy 110.7; Estimated Glomerular Filt Rate > 60; Potassium 3.6 mmol/L (3.3-5.1); Sodium 140 mmol/L (135-145); Total Protein 7.1 g/dL (6.5-8.0)
[2025-09-08 18:18] VITALS: BP 113/75; PULSE 100; RESP 16; TEMP 36.9; O2SAT 100
[2025-09-08 18:25] LABS: Appearance Urine Clear; Glucose Urine UA Negative (Negative); PH 7.5 (5.0-9.0); Specific Gravity - Urine 1.010 (1.005-1.025)
[2025-09-08 20:19] VITALS: BP 119/77; PULSE 89; RESP 16; TEMP 36.7; O2SAT 100
[2025-09-08] MEDS: Lactated Ringers 1,000 ML 999 ML IV (22:11)
[2025-09-08] MEDS: iohexoL 350 MG/ML 100 ML INFUS..BTL 85 ML IV (22:23)
[2025-09-08 22:31] VITALS: BP 116/70; PULSE 89; RESP 16; TEMP 36.9; O2SAT 99
[2025-09-08 22:56] VITALS: BP 125/85; PULSE 90; RESP 20
[2025-09-09] MEDS: iohexoL 350 MG/ML 100 ML INFUS..BTL 70 ML IV (00:13)
--- NOTE | 2025-09-09 02:20 | P.HPHOSP_ITS ---
History of Present Illness Date of Service: 09/09/25 Attending physician on admission: Jan Cardoso Chief Complaint: R abd/flank pain patient is a 25-year-old female with a past medical history significant for migraine headaches who presented to the ED due to right-sided flank pain that began 2 days ago when she woke up. she had a migraine 3 days ago and took verapamil prescribed by her neurologist before bed. when she woke following morning the headache was still there so she took a dose of Nurtec which resolved her migraine completely. Shortly after taking the Nurtec she developed right- sided flank pain but felt this was related to taking the 2 medications closely together. The pain has been increasingly becoming more uncomfortable so she reported to the emergency department. The pain has been constant since it started, worse with movement or deep breaths. Due to her pain she has decreased oral intake but denies any nausea or vomiting. No chest pain, shortness of breath, urinary symptoms, cough, fever, chills or diarrhea. She is not on any estrogen, no history of coagulopathy or family history of coagulopathy. Of note she was seen in the emergency department on 07/08 due to a headache with left arm numbness and weakness lasted approximately 1 minute. She also possibly had slurred speech with word-finding difficulties, left face numbness and weakness. Head CT and CTA head and neck were both negative. She was diagnosed with a hemiplegic migraine, given IV fluids and Tylenol and referred to Neurology on discharge. Review of Systems 2 Constitutional: Constitutional: Denies body ache(s), Denies chills, Denies fatigue and Denies headache(s) Eyes: Eyes: Denies change in vision ENT: Denies headache(s), Denies nasal congestion and Denies sore throat Cardiovascular: Cardiovascular: Denies chest pain, Denies rapid heart rate, Denies leg edema, Denies lightheadedness and Denies dyspnea Respiratory: Respiratory: Denies chest congestion, Denies cough, Denies dyspnea and Denies wheezing Gastrointestinal: Gastrointestinal: Reports abdominal pain, Denies diarrhea, Denies nausea and Denies vomiting Genitourinary: Genitourinary: Denies difficulty voiding, Denies dysuria and Denies urinary urgency Musculoskeletal: Musculoskeletal: Reports back pain Integumentary/Breasts: Skin/Breast: Denies rash Neurologic: Denies confusion and Denies headache(s) Psychiatric: Psychiatric: Denies confusion Endocrine: Endocrine: Denies fatigue Hematologic/Lymphatic: Hematologic/Lymphatic: Denies easy bleeding Allergic/Immunologic: Allergic/Immunologic: Denies wheezing PMFSH Medical History Headache, hemiplegic migraine Slurred speech Headache Functional capacity: independent ambulation Social History Alcohol intake: current Alcohol intake frequency: does not drink Comment: Social Patient Tobacco Use Status: Never used Tobacco Smoked in Last 30 Days: No Use of substances other than those prescribed or required for medical reasons: No Advance Directives: No Advance Directives Information Provided: No Do you have a plan to hurt others: No Plan Patient : No Meds Allergies Allergy/AdvReac Type Severity Reaction Status Date / Time Penicillins (PENICILLINS) Allergy Unknown HIVES Verified 09/08/25 15:41 Active Medications: Current Medications Acetaminophen (Acetaminophen 325 Mg Tablet) 975 mg PO Q6H PRN PRN Reason: Pain, Mild 1-3,fever,headache Calcium Carbonate (Calcium Carbonate 750 Mg Tab.Chew) 750 mg PO Q4H PRN PRN Reason: Heartburn Hydromorphone HCl (Hydromorphone Hcl 1 Mg/Ml Syringe) 0.5 mg IVPUSH Q4H PRN; Protocol PRN Reason: Pain, Severe (Pain Scale 7-10) Magnesium Hydroxide (Milk Of Magnesia 30 Ml Oral.Susp) 30 ml PO DAILY PRN PRN Reason: Constipation Melatonin (Melatonin 3 Mg Tablet) 6 mg PO BEDTIME PRN PRN Reason: Insomnia Ondansetron HCl (Ondansetron Hcl 4 Mg/2 Ml Vial) 4 mg IVPUSH Q8H PRN PRN Reason: Nausea and Vomiting Oxycodone HCl (Oxycodone Hcl Immed Release 5 Mg Tablet) 5 mg PO Q6H PRN PRN Reason: Pain, Moderate(Pain Scale 4-6) Sodium Chloride (0.9 % Sodium Chloride Flush 3 Ml Syringe) 3 ml IVFLUSH QSHIFT [facility] Physical Exam 2 Vital Signs and Narrative: Vital Signs: Last Vital Signs Temp 98.4 F 09/08/25 22:31 Pulse 90 09/08/25 22:56 Resp 20 09/08/25 22:56 BP 125/85 09/08/25 22:56 Pulse Ox 99 09/08/25 22:31 O2 Del Method Room Air 09/08/25 22:31 BMI result Body Mass Index 26.8 General: AOx3, no acute distress Resp: CTA bilaterally CVS: S1, S2, RRR GI/: +BS, R flank pain, no distention Skin: Warm, dry Neuro: Cranial nerves II-XII grossly intact bilaterally. Motor grossly intact bilaterally Extremities: No edema Psych: Appropriate affect Const: General: No confusion Orientation/consciousness: No confusion Neuro: General: No confusion Results Labs 09/08/25 17:19 09/08/25 17:19 Labs: Laboratory Results - last 24 hr 09/08/25 09/08/25 17:19 18:19 MCV 85.0 MCH 27.7 MCHC 32.5 RDW 12.3 Plt Count 211 MPV 10.5 Immature Gran % (Auto) 0.3 Neut % (Auto) 71.7 Lymph % (Auto) 15.4 L [place] % (Auto) 8.6 Eos % (Auto) 3.5 Baso % (Auto) 0.5 Lymph # (Auto) 1.8 [place] # (Auto) 1.0 Eos # (Auto) 0.4 Baso # (Auto) 0.1 Abs Immat Gran (auto) 0.03 Absolute Neuts (auto) 8.3 Absolute Nucleated RBC 0.000 Nucleated RBC % (auto) 0.0 Anion Gap 10 L Estim Creat Clear Calc 110.7 Estimated GFR > 60 Random Glucose 89 Calcium 9.4 Total Bilirubin 0.4 Direct Bilirubin 0.1 AST 34 H ALT 30 Alkaline Phosphatase 70 Total Protein 7.1 Albumin 4.4 Beta HCG, Quant < 2 Urine Color Yellow Urine Appearance Clear Urine pH 7.5 Ur Specific [place] 1.010 Urine Protein Negative Urine Glucose (UA) Negative Urine Ketones Negative Urine Blood Negative Urine Nitrite Negative Ur Leukocyte Esterase Negative Assessment and Plan (1) Renal infarct: Status: Acute Plan patient is a 25-year-old female with a past medical history significant for migraine headaches who presented to the ED due to right-sided flank pain that began 2 days ago when she woke up. progressively worsening R flank pain with renal infarct on imaging and recent presentation with concern for possible TIA R renal infarct on CT with recent ED visit concerning for TIA - pain management: tylenol, oxycodone, dilaudid - tele - nephrology and neurology consult - dopplar renal US - MRI brain - await MRI prior to anticoagulant leukocytosis, likely reactive - UA negative, no signs of active infection - monitor CBC and BMP med rec pending full code VTE prophy: pneumoboots Pt with R renal infarct with recent ED visit concerning for possible TIA requiring admission for further evaluation and monitoring. Quality Stroke Does the patient have a stroke diagnosis?: No VTE Prior VTE?: No VTE Risk Level:: Medical - moderate - high VTE Device Contraindication: N/A - Device Ordered VTE Drug Contraindication: Treatment Not Indicated
[2025-09-09] MEDS: oxyCODONE HCl Immed Release 5 MG TABLET PO ×2 (04:41→16:43)
[2025-09-09 04:58] LABS: Hematocrit 36.3 % (37.0-47.0); Hemoglobin 11.9 g/dl (12.0-16.0); Mean Corpuscular HGB Conc 32.8 g/dl (31.0-35.0); Mean Corpuscular Hemoglobin 28.1 pg (27.0-33.0); Mean Corpuscular Volume 85.8 fL (80.0-98.0); NRBC Abs Auto 0.000 X10*3/uL (0.0-0.012); NRBC Pct Auto 0.0 /100WBC (0.0-0.2); Platelet Count 189 X10*3/uL (160-400); Red Blood Count 4.23 X10*6/uL (4.20-5.50); White Blood Count 9.9 X10*3/uL (4.8-10.8)
[2025-09-09 05:14] LABS: Anion Gap 9 (12-20); Blood Urea Nitrogen 4 mg/dL (9-16); Calcium 8.7 mg/dL (8.4-10.2); Carbon Dioxide 25 mmol/L (22-29); Chloride 109 mmol/L (96-108); Creatinine Clr Calc Pharmacy 117.1; Estimated Glomerular Filt Rate > 60; Potassium 4.0 mmol/L (3.3-5.1); Sodium 139 mmol/L (135-145)
[2025-09-09 06:05] VITALS: BP 126/83; PULSE 87; RESP 16; TEMP 36.7; O2SAT 97
--- NOTE | 2025-09-09 07:46 | PC.NURSE ---
patient a&ox3, vss, rr equal/non labored, pt has c/o 6/10 abd pain which she states is tolerable after her oxycodone, pt completed MRI form will fax to MRI, cardiac catheterization technician intact- sinus tach, call saha within reach, plan of care ongoing.
[2025-09-09] MEDS: 0.9 % Sodium Chloride Flush 3 ML SYRINGE IVFLUSH ×3 (08:44→21:27)
[2025-09-09 09:00] VITALS: BMI 24.3
--- NOTE | 2025-09-09 09:19 | MHC.EDTECH ---
Attempted to obtain blood draw/urine sample for CT scan. Patient refusing.
--- NOTE | 2025-09-09 09:58 | PHA.MEDREC ---
Pharmacy Consult ? Medication Reconciliation Pharmacy has completed the medication reconciliation. Spoke with patient in ED who knew all medications
--- NOTE | 2025-09-09 12:42 | MHC.CM.PN ---
CM met with Patient and her at bedside, in the ED. Patient lives in a house with her and her car is here for transport at dc. PCP is from [facility] in [place] and home self care is the goal. CM has initiated and will follow for dc planning.
--- NOTE | 2025-09-09 12:45 | P.CNNE_ITS ---
History of Present Illness Data of Consult Service Date: 09/09/25 Primary Care Provider: [facility] Reason for consult: Renal infarct Alejandra is a 25-year-old female patient with a past history of hemiplegic migraine who I am following in the clinic. I last saw her on 07/27/2025 at which time she described migraines associated with aphasia, left-sided numbness and weakness and normal CT imaging of the head and neck. She has been experiencing migraines since she was a child most of which have been accompanied by visual auras described as ?squiggly lines? in her vision. During her office visit, I recommended an MRI of the brain without contrast, a trial of Nurtec 75 mg for abortive therapy as well as a trial of verapamil 120 mg at bedtime for migraine prevention. She tells me today, her migraines have been improving since initiation of the verapamil as she has taken so far taken 2 doses of her Nurtec. The 1st dose of Nurtec worked well and did not cause any adverse effects. It was after the 2nd time she took a dose of Nurtec (many days even weeks after her initial dose) that she experienced right upper quadrant pain not long after the dose of Nurtec. She tells me today that she has been warned by her pharmacist not to take the medications concurrently however literature supports the use of these 2 medications with some caution. It is recommended that Nurtec be spaced out at least by 48 hours and to avoid 2 doses within 24 hours. Her hospital workup has revealed a renal infarct though her renal labs look okay. Her abdominal pain has since resolved and she has not had any further headache since taking the Nurtec back over the weekend. She has no new neurological concerns today. Review of Systems 2 Review of Systems: Yes all other systems are reviewed and are negative PMFSH Past Medical History Medical History Headache, hemiplegic migraine Slurred speech Headache Social History Social History Household Members: Spouse Housing: Apartment Do you presently have visiting nurse or other home services: No Alcohol intake: current Alcohol intake frequency: does not drink Comment: Social Patient Tobacco Use Status: Never used Tobacco Smoked in Last 30 Days: No Use of substances other than those prescribed or required for medical reasons: No Have you been hit, kicked, punched, or otherwise hurt by someone within the past year? If so, by whom?: No Do you feel safe in your current relationship?: Yes Is there a partner from a previous relationship who is making you feel unsafe now?: No Are you made to feel afraid or neglected: No Advance Directives: No Advance Directives Information Provided: No Do you have a plan to hurt others: No Plan Recently lost weight without trying: No Nutrition Risks: No Nutritional Risk Patient : No : No Poor oral hygiene: No Meds Allergies Allergy/AdvReac Type Severity Reaction Status Date / Time Penicillins (PENICILLINS) Allergy Unknown HIVES Verified 09/08/25 15:41 Active Medications: Current Medications Acetaminophen (Acetaminophen 325 Mg Tablet) 975 mg PO Q6H PRN PRN Reason: Pain, Mild 1-3,fever,headache Calcium Carbonate (Calcium Carbonate 750 Mg Tab.Chew) 750 mg PO Q4H PRN PRN Reason: Heartburn Hydromorphone HCl (Hydromorphone Hcl 1 Mg/Ml Syringe) 0.5 mg IVPUSH Q4H PRN; Protocol PRN Reason: Pain, Severe (Pain Scale 7-10) Magnesium Hydroxide (Milk Of Magnesia 30 Ml Oral.Susp) 30 ml PO DAILY PRN PRN Reason: Constipation Melatonin (Melatonin 3 Mg Tablet) 6 mg PO BEDTIME PRN PRN Reason: Insomnia Ondansetron HCl (Ondansetron Hcl 4 Mg/2 Ml Vial) 4 mg IVPUSH Q8H PRN PRN Reason: Nausea and Vomiting Oxycodone HCl (Oxycodone Hcl Immed Release 5 Mg Tablet) 5 mg PO Q6H PRN PRN Reason: Pain, Moderate(Pain Scale 4-6) Last Admin: 09/09/25 04:41 Dose: 5 mg Sodium Chloride (0.9 % Sodium Chloride Flush 3 Ml Syringe) [facility] Last Admin: 09/09/25 08:44 Dose: 3 ml Home Medications ?Medication ?Instructions ?Recorded ?Confirmed ?Last Taken ?Type rimegepant 75 mg disintegrating 75 mg PO Q2D PRN migra ine headache 09/09/25 09/09/25 09/06/25 History tablet (Nurtec ODT) Physical Exam 2 Vital Signs: Vital Signs: Last Vital Signs Temp 98.1 F 09/09/25 06:05 Pulse 87 09/09/25 06:05 Resp 16 09/09/25 06:05 BP 126/83 09/09/25 06:05 Pulse Ox 97 09/09/25 06:05 O2 Del Method Room Air 09/09/25 06:05 BMI result Body Mass Index 26.8 Const: General: cooperative, healthy appearing, comfortable and no acute distress Nutritional Appearance: well nourished Orientation/consciousness: patient oriented x3 Limitations: no limitations HEENT: Head: Yes normal to inspection and Yes normocephalic Eyes: General: appearance normal, both eyes and all related structures V isual Goins: normal visual goins by confrontation Alignment and Position: a lignment normal Periorbital: periorbital findings normal Eyelids: Yes eyelids normal Conjunctivae: conjunctivae normal Sclerae: sclerae normal Neck: Neck: Yes normal visual inspection and Yes full ROM : General: Yes no CVA tenderness Back/Spine/Pelvis: Back: no CVA tenderness Cervical Spine: normal cervical lordosis Thoracic/Lumbar Spine: thoracic and lumbar spine normal to inspection Neuro: General: patient oriented x3 Cranial nerves: Yes CN's II-XII intact bilaterally and Yes Facial sensation intact/muscles of mastication intact C ognition (Neuro): normal cognition Gait exam (Neuro): Normal gait present Motor exam (neuro): no tremor noted Sensory Exam: Normal double simultaneous stimulation for sensation Romberg Test: Negative Pupils: Normal pupillary reactivity/response: bilateral Psych: Appearance: grossly normal Mental Status: mental status grossly normal Speech and movement: Normal speech and movement present and Clear speech present Affect: normal affect Attitude: cooperative Thought process: Normal thought process present Thought content: Normal thought content present Insight: Good insight present (Psych) Judgement: Good judgement present (Psych) Results Labs 09/09/25 04:48 09/09/25 04:48 Labs: Short CBC 09/08/25 09/09/25 Range/Units 17:19 04:48 WBC 11.6 H 9.9 (4.8-10.8) X10*3/uL Hgb 12.4 11.9 L (12.0-16.0) g/dl Hct 38.1 36.3 L (37.0-47.0) % Plt Count 211 189 (160-400) X10*3/uL BMP 09/08/25 09/09/25 17:19 04:48 Sodium 140 139 Potassium 3.6 4.0 Chloride 108 109 H Carbon Dioxide 26 25 BUN 6 L 4 L Creatinine 0.55 0.52 Calcium 9.4 8.7 D Liver Function 09/08/25 Range/Units 17:19 Total Bilirubin 0.4 (0.0-1.0) mg/dL Direct Bilirubin 0.1 (0.0-0.5) mg/dL AST 34 H (5-31) U/L ALT 30 (0-31) U/L Alkaline Phosphatase 70 (39-117) U/L Albumin 4.4 (3.5-5.0) g/dL Urine 09/08/25 Range/Units 18:19 Urine Color Yellow Urine Appearance Clear Urine pH 7.5 (5.0-9.0) Ur Specific [place] 1.010 (1.005-1.025) Urine Protein Negative (Neg-Trace) mg/dL Urine Glucose (UA) Negative (Negative) mg/dL Assessment and Plan (1) Migraine with aura and without status migrainosus, not intractable: Status: Acute (2) Renal infarct: Status: Acute Plan Alejandra is a 25-year-old female patient with a past history of hemiplegic migraine who I am following in the clinic. I have been treating with verapamil and as needed Nurtec for presumed hemiplegic migraine though we have been awaiting imaging that I ordered at her last visit. Cerebral infarct can not be ruled out until we have MRI imaging. This is now of greater concern given the finding of renal infarct. There is clear relationship between the renal infarct in the use of verapamil in conjunction with the Nurtec. There is a drug to drug interaction with the 2 medications when the Nurtec is used more frequently however when he uses sparingly in his known to be safe. I do not think that this is the cause of the infarction based on the available literature. The patient however did have concerns about this. The greater concern is the unknown cause of the renal infarct and whether or not her aphasia and weakness episode she has previously experienced represented a more significant cerebral event versus a hemiplegic migraine. If there are signs of infarction on MRI imaging, I would recommend an echocardiogram with bubble study and carotid Doppler. We should consider a hypercoagulability workup while in the hospital if not already ordered. In regards to her migraine management, I will not make any major changes for now though we can hold off on the verapamil until her workup here in the hospital has been completed. I will follow up with her in the clinic upon discharge. Procedures Date of Service Date of Service: 09/09/25
--- OUTSIDE RECORDS SUMMARY | 2025-09-09 13:37 | XMS_ITS | Clinical Summary ---
Author Organization 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 Vitamin D deficiency 08/04/2016 Encounters Date Type Department Care Team Description 07/08/2025 Telephone Adult Medicine [address] [address] Jessi Paulino MA from Last 3 Months Immunizations Immunization Administration Dates Next Due DTaP (Infanrix) 6wks to less than 7yo ,07/05/1999,1998,08/03,1998 [id number] (Pentacel) 2mo to less than 5yo 08/29/2000,04/04/1999,1998,05/31 [...] COMMENT: 05/26 JRA (juvenile rheumatoid art hritis) ([facility] V24, [facility] V28) 08/04/2016 DX:JRA (juvenile rheumatoid arthritis) ([facility]); COMMENT: Mild pauciarticular JRA Family History [...] RESULTING AGENCY - 11/23/2023 8:35 AM EST [id number] THINPREP PAP, IMAGED: NEGATIVE FOR SQUAMOUS INTRAEPITHELIAL [...] mg/dL Blood Venous blood specimen / Unknown [facility] Provider LAB BLOOD ORDERABLES Lucretia l Result * HIV Screening (10/03/2018) Pathologist [facility] HIV Screening abstracted [facility] Provider HEALTH MAINTENANCE Final Result * Hepatitis C Screening (10/03/2018) Pathologist [facility] Hepatitis C Screening abstracted [facility] Provider HEALTH MAINTENANCE Final Result from Last 3 Months or Most Recently Relevant to Health Maintenance Care Teams Market Risk Analyst Relationship Specialty Start Date End Date Alvaro Shearer MD [address] [place] [address] PCP - General 05/25/23
--- NOTE | 2025-09-09 15:36 | PM.EVENT ---
Event Note Date of Service: 09/09/25 Event Note: Patient seen examined at bedside this morning, patient states that she is feeling okay, awaiting MRI and ultrasound results. Patient being followed by Neurology and Nephrology. Per Neurology, MRI negative, TTE with carotid Doppler suggested as well as hypercoagulable workup. Time Spent With Patient Time: Total time managing care of this patient today ____ minutes.
--- NOTE | 2025-09-09 15:42 | PM.CNNEP ---
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 She underwent CT later followed by CTA of the abdomen which showed right-sided upper renal infarct. So nephrology is consulted. Patient has no history of abortions or miscarriages, she is not on any oral contraceptives. Her mom has a history of miscarriage, hypertension since her 20s. Mom states she has a family history of hypertension at young age. She had episode of palpitation and year ago, Holter monitor was placed for 24 hours which did not show any arrhythmias. Review of Systems Review of Systems Const : no body aches, no chills, no excessive sweating Eyes: no blurry vision and no change in vision ENT: no bleeding gums and no change in voice, no dizziness Card: no chest pain, no shortness of breath, no orthopnea, no PND Resp: no cough, no excessive phlegm production, no SOB GI: +abdominal pain and no nausea, no vomiting : no hematuria, no urinary frequency and no difficulty voiding Musc: no abnormal gait, no bone pain Neuro: no abnormal movements, no abnormal gait and no behavioral changes Psych: no behavioral changes and no change in appetite Endo: no change in body appearance, no cold intolerance PMFSH Past Medical History Medical History Headache, hemiplegic migraine Slurred speech Headache Social History Social History Household Members: Spouse Housing: Apartment Do you presently have visiting nurse or other home services: No Alcohol intake: current Alcohol intake frequency: does not drink Comment: Social Patient Tobacco Use Status: Never used Tobacco Smoked in Last 30 Days: No Use of substances other than those prescribed or required for medical reasons: No Have you been hit, kicked, punched, or otherwise hurt by someone within the past year? If so, by whom?: No Do you feel safe in your current relationship?: Yes Is there a partner from a previous relationship who is making you feel unsafe now?: No Are you made to feel afraid or neglected: No Advance Directives: No Advance Directives Information Provided: No Do you have a plan to hurt others: No Plan Recently lost weight without trying: No Nutrition Risks: No Nutritional Risk Patient : No : No Poor oral hygiene: No service: No Meds Allergies Allergy/AdvReac Type Severity Reaction Status Date / Time Penicillins (PENICILLINS) Allergy Unknown HIVES Verified 09/08/25 15:41 Active Medications: Current Medications Acetaminophen (Acetaminophen 325 Mg Tablet) 975 mg PO Q6H PRN PRN Reason: Pain, Mild 1-3,fever,headache Calcium Carbonate (Calcium Carbonate 750 Mg Tab.Chew) 750 mg PO Q4H PRN PRN Reason: Heartburn Hydromorphone HCl (Hydromorphone Hcl 1 Mg/Ml Syringe) 0.5 mg IVPUSH Q4H PRN; Protocol PRN Reason: Pain, Severe (Pain Scale 7-10) Magnesium Hydroxide (Milk Of Magnesia 30 Ml Oral.Susp) 30 ml PO DAILY PRN PRN Reason: Constipation Melatonin (Melatonin 3 Mg Tablet) 6 mg PO BEDTIME PRN PRN Reason: Insomnia Ondansetron HCl (Ondansetron Hcl 4 Mg/2 Ml Vial) 4 mg IVPUSH Q8H PRN PRN Reason: Nausea and Vomiting Oxycodone HCl (Oxycodone Hcl Immed Release 5 Mg Tablet) 5 mg PO Q6H PRN PRN Reason: Pain, Moderate(Pain Scale 4-6) Last Admin: 09/09/25 04:41 Dose: 5 mg Sodium Chloride (0.9 % Sodium Chloride Flush 3 Ml Syringe) 3 ml IVFSH [facility] Last Admin: 09/09/25 08:44 Dose: 3 ml Home Medications ?Medication ?Instructions ?Recorded ?Confirmed ?Last Taken ?Type rimegepant 75 mg disintegrating 75 mg PO Q2D PRN migraine headache 09/09/25 09/09/25 09/06/25 History tablet (Nurtec ODT) Physical Exam Vital Signs: Last Vital Signs Temp 98.1 F 09/09/25 06:05 Pulse 87 09/09/25 06:05 Resp 16 09/09/25 06:05 BP 126/83 09/09/25 06:05 Pulse Ox 97 09/09/25 06:05 O2 Del Method Room Air 09/09/25 06:05 BMI result Body Mass Index 26.8 General: not in any acute distress, comfortable Nutritional Appearance: well nourished and weight Eyes: normal position, no icterus Neck: No lymphadenopathy, no thyromegaly Resp: bilateral air entry equal, no added sounds present Cardio: normal S1, S2 heard, no murmur heard, no edema GI: soft, +tender on palpation RUQ, no guarding, no hepatosplenomegaly : bladder normal to inspection, bladder normal to palpation, no renal angle tenderness Skin: no rashes or lesions noted and elasticity normal Neuro: oriented to person, oriented to place, oriented to time and moves all extremities Results Lab Results 09/09/25 04:48 09/09/25 04:48 Lab results: Chemistry 09/08/25 09/09/25 17:19 04:48 Sodium 140 139 Potassium 3.6 4.0 Carbon Dioxide 26 25 BUN 6 L 4 L Creatinine 0.55 0.52 Calcium 9.4 8.7 D Hematology 09/08/25 09/09/25 17:19 04:48 WBC 11.6 H 9.9 Hgb 12.4 11.9 L Plt Count 211 189 Urinalysis 09/08/25 18:19 Urine Color Yellow Urine Appearance Clear Urine pH 7.5 Ur Specific [place] 1.010 Urine Protein Negative Urine Glucose (UA) Negative Urine Ketones Negative Urine Blood Negative Urine Nitrite Negative Ur Leukocyte Esterase Negative Assessment and Plan (1) Renal infarct: Status: Acute Plan Renal infarct: Patient has been right renal upper pole infarct of indeterminate age; possibly acute. However urinalysis normal with no RBCs making it a little questionable. She has history of multiple episodes of hemiplegia possibly TIA. She had episodes of palpitation and a year ago for which she was placed on Holter for 24 hours which did not show any arrhythmia. Patient is 25-year-old, she is not on any contraceptives but never had history of or miscarriage, does not have a child either; questioning her fertility. Her mom had miscarriages and hypertension at a young age and has a family history of hypertension young age. Would like to rule out antiphospholipid antibody syndromes. We will look for other hypercoagulable states including factor 5 Leiden mutations, anti protein C and S antibodies. We will get TTE with bubble study given her history of hemiplegia. Place the patient on telemetry monitoring until she is discharged to look for any arrhythmias. Procedures Date of Service Date of Service: 09/09/25
--- NOTE | 2025-09-09 16:00 | CA_ITS ---
Transthoracic Echocardiogram Patient (Last, First, Middle): Alejandra Cote M Gender: Female Date of : 2000 Age: 25 Procedure Date: 09/09/2025 Procedure Type: Transthoracic Echocardiogram Location: ER Height: 144.78 cm Weight: 56.25 kg BSA: 1.47 m2 Heart Rate: bpm BP: 126 / 83 mmHg Paint Dipper: LUIS CARLOS Referring MD: Ganga Landers MD Symptoms: TIA Study Quality: Adequate ECG Rhythm: Sinus Conclusions: - The left ventricular systolic function is normal. The calculated ejection fraction is 67% by biplane method. - No obvious valvular pathology seen on this study. - Patent foramen ovale detected using by contrast. Findings Left Ventricle Normal left ventricular cavity size. There is normal left ventricular wall thickness. The left ventricular systolic function is normal. The calculated ejection fraction is 67% by biplane method. There is no evidence of regional wall motion abnormalities. Diastolic function is normal for age. Right Ventricle Normal right ventricular cavity size and systolic function. Atria Both atria are normal in size. Patent foramen ovale detected using by contrast. Bubble study strongly positive during rest and valsalva. Aortic Valve There is a normal trileaflet aortic valve. There is no aortic valve stenosis. There is no aortic valve regurgitation. Mitral Valve The mitral valve appears normal. There is no mitral valve regurgitation. There is no mitral valve stenosis. Pulmonic Valve The pulmonic valve is likely normal. Tricuspid Valve There is trace tricuspid valve regurgitation. There is no evidence of pulmonary hypertension. Great Vessels The asc aorta and aortic arch are normal in size. Venous The inferior vena cava is normal in size and collapses greater than 50% with inspiration. Pericardium/Pleural There is no evidence of pericardial effusion. Prior Study Comparison No prior study available for comparison. Recommendations, Care & Conclusions No obvious valvular pathology seen on this study. Measurements 2D Linear Measurements IVSd: 0.77 0.6-0.9/0.6-1.0 cm LVIDd: 4.01 3.9-5.3/4.2-5.9 cm LVIDd Index: 2.73 2.4-3.2/2.2-3.1 cm/m2 LVIDs: 2.55 2.0-3.6 cm LVPWd: 0.74 0.7-1.1 cm LA Diam: 2.80 2.7-3.8/3.0-4.0 cm LAIDs Index: 1.90 1.5-2.3 cm/m2 LV Mass: 107.77 67-162/88-224 g LV Mass Index: 73.31 43-95/49-115 g/m2 LVOT Diam: 2.00 3.0+(-)1.3 cm 2D Systolic Function EF 4C: 65.10 >55% EF 2C: 68.90 >55% EF BiP: 66.90 >55% Mitral Valve MV Pk E: 1.22 MV PK A: 0.82 MV Decel Time: 204.00 E/A: 1.50 E'Lateral: 12.80 E'Medial: 10.30 E/E' Med: 11.80 E/E' Lat: 9.50 PHT: 60.00 MVA PHT: 3.67 Decel [place]: 5.96 Aortic Valve AoV Pk Lucio: 1.58 AoV Mn Lucio: 1.15 AoV VTI: 0.34 AoV Pk Grad: 10.00 Aov Mn Grad: 6.00 SON Cont.VTI: 2.38 LVOT LVOT Pk Lucio: 1.42 LVOT Mn Lucio: 0.97 LVOT VTI: 0.26 LVOT Pk Grad: 8.00 LVOT Mn Grad: 4.00 LVOT Diam: 2.00 LVOT Area: 3.14 Diastolic Function MV Pk E: 1.22 MV Pk A: 0.82 E/A: 1.50 E'Medial: 10.30 E/E' Med: 11.80 E' Laterial: 12.80 E/E' Lat: 9.50 Right Ventricle TAPSE (mm): 22.70 TVS' Lucio: 13.70 Tricuspid Valve TR Pk Lucio: 2.17 TR Pk Grad: 19.00 RA Press: 3.00 RVSP: 22.00 Great Vessels Aorta Sinus of Valsalva: 2.60 2.0-3.[address] [place]: 2.28 1.7-3.4 cm Ao Asc: 2.70 2.1-3.4 cm Ao Arch: 2.30 Pulmonary Veins Pulm Vein S/D 1.20 Updated in Other Vendor System with Status of Final Bruno Machuca MD electronically signed on 09/10/2025 8:35:45 AM with status of Final
[2025-09-09 16:44] VITALS: BP 119/79; PULSE 98; RESP 18; O2SAT 98
--- NOTE | 2025-09-09 16:49 | HO.NURTONUR ---
Pt is a 25yo F with pmh of migraines, came to ED for rt flank pain x2days. Progressively worsening. CT abd showed rt renal infarct, recent ED visit concerning for TIA. Nephro and neuro consulted. Pending doppler renal results. MRI brain results pending. Pt ambulates independently. Swallows pills whole. Regular diet. 20g RFA. oxycodone 5mg PO PRN pain with good control. Full code. Family at bedside.
[2025-09-09 19:03] VITALS: BP 137/86; PULSE 87; RESP 20; TEMP 36.8; O2SAT 98
[2025-09-09 23:40] VITALS: BP 115/71; PULSE 70; RESP 19; TEMP 36.9; O2SAT 98
[2025-09-10] VITALS (7 sets, daily range): BP systolic 106–119; BP diastolic 63–78; PULSE 70–97; RESP 18–20; TEMP 36.3–36.9; O2SAT 98–100
[2025-09-10 06:22] LABS: Hematocrit 37.9 % (37.0-47.0); Hemoglobin 12.3 g/dl (12.0-16.0); Mean Corpuscular HGB Conc 32.5 g/dl (31.0-35.0); Mean Corpuscular Hemoglobin 27.9 pg (27.0-33.0); Mean Corpuscular Volume 85.9 fL (80.0-98.0); NRBC Abs Auto 0.000 X10*3/uL (0.0-0.012); NRBC Pct Auto 0.0 /100WBC (0.0-0.2); Platelet Count 210 X10*3/uL (160-400); Red Blood Count 4.41 X10*6/uL (4.20-5.50); White Blood Count 9.1 X10*3/uL (4.8-10.8)
[2025-09-10 06:36] LABS: Anion Gap 12 (12-20); Blood Urea Nitrogen 6 mg/dL (9-16); Calcium 9.2 mg/dL (8.4-10.2); Carbon Dioxide 24 mmol/L (22-29); Chloride 108 mmol/L (96-108); Creatinine Clr Calc Pharmacy 107.6; Estimated Glomerular Filt Rate > 60; Potassium 4.1 mmol/L (3.3-5.1); Sodium 140 mmol/L (135-145)
[2025-09-10] MEDS: 0.9 % Sodium Chloride Flush 3 ML SYRINGE IVFLUSH ×2 (08:42→23:31)
[2025-09-10] MEDS: oxyCODONE HCl Immed Release 5 MG TABLET PO (10:36)
[2025-09-10] MEDS: Lidocaine 4 % Patch ADH..PATCH 1 PATCH TRANSDERMA (10:36)
[2025-09-10 10:52] LABS: Appearance Urine Clear; Glucose Urine UA Negative (Negative); PH 8.0 (5.0-9.0); Specific Gravity - Urine 1.020 (1.005-1.025)
--- NOTE | 2025-09-10 14:03 | P.PNIM_ITS ---
Subjective Subjective Date of Service: 09/10/25 Interval History: Patient seen examined at bedside this morning, patient states that she is having excited back pain, able to pinpoint. Patient had workup done for clotting disorders, spoke with Nephrology, suggested on obtaining HOANG, LDH. Review of Systems Review of Systems: Yes all other systems are reviewed and are negative Physical Exam 2 Exam: Exam: General: AxOx3, No acute distress Head: AT/NC ENT: Moist mucous membranes Neck: supple CVS; RRR, S1 S2 normal Lungs: Clear bilateral breath sounds, no wheezes or crackles Abd: Soft non tender, non distended Ext: No edema and no calf tenderness MSK: moving all 4 limbs, right lower back tenderness between 8th and 9th intercostal space Skin: No cyanosis or edema Psych: Cooperative with exam Neurology: no focal deficit Vital Signs: Vital Signs: Last Vital Signs Temp 97.7 F 09/10/25 12:07 Pulse 70 09/10/25 12:07 Resp 18 09/10/25 11:06 BP 111/78 09/10/25 12:07 Pulse Ox 98 09/10/25 11:06 O2 Del Method Room Air 09/10/25 11:06 BMI result Body Mass Index 24.3 Objective Data Active Medications Acetaminophen (Acetaminophen 325 Mg Tablet) 975 mg PO Q6H PRN PRN Reason: Pain, Mild 1-3,fever,headache Last Admin: 09/10/25 08:41 Dose: 975 mg Documented By: MARY Calcium Carbonate (Calcium Carbonate 750 Mg Tab.Chew) 750 mg PO Q4H PRN PRN Reason: Heartburn Hydromorphone HCl (Hydromorphone Hcl 1 Mg/Ml Syringe) 0.5 mg IVPUSH Q4H PRN; Protocol PRN Reason: Pain, Severe (Pain Scale 7-10) Lidocaine (Lidocaine 4 % Patch Adh..Patch) 1 patch TRANSDERMA DAILY [facility]; Protocol Last Admin: 09/10/25 10:36 Dose: 1 patch Documented By: MARY Magnesium Hydroxide (Milk Of Magnesia 30 Ml Oral.Susp) 30 ml PO DAILY PRN PRN Reason: Constipation Melatonin (Melatonin 3 Mg Tablet) 6 mg PO BEDTIME PRN PRN Reason: Insomnia Ondansetron HCl (Ondansetron Hcl 4 Mg/2 Ml Vial) 4 mg IVPUSH Q8H PRN PRN Reason: Nausea and Vomiting Last Admin: 09/10/25 12:04 Dose: 4 mg Documented By: MARY Oxycodone HCl (Oxycodone Hcl Immed Release 5 Mg Tablet) 5 mg PO Q6H PRN PRN Reason: Pain, Moderate(Pain Scale 4-6) Last Admin: 09/10/25 10:36 Dose: 5 mg Documented By: MARY Sodium Chloride (0.9 % Sodium Chloride Flush 3 Ml Syringe) 3 ml IVFLUSH QSHIFT AC Last Admin: 09/10/25 08:42 Dose: 3 ml Documented By: MARY Labs 09/10/25 05:57 09/10/25 05:57 Labs: Laboratory Results - last 24 hr 09/10/25 09/10/25 09/10/25 05:57 10:00 10:12 MCV 85.9 MCH 27.9 MCHC 32.5 RDW 12.2 Plt Count 210 MPV 10.6 Absolute Nucleated RBC 0.000 Nucleated RBC % (auto) 0.0 Anion Gap 12 Estim Creat Clear Calc 107.6 Estimated GFR > 60 Random Glucose 91 Calcium 9.2 Lactate Dehydrogenase 306 H Urine Color Yellow Urine Appearance Clear Urine pH 8.0 Ur Specific [place] 1.020 Urine Protein Negative Urine Glucose (UA) Negative Urine Ketones 40 Urine Blood Negative Urine Nitrite Negative Ur Leukocyte Esterase Negative Urine RBC 0-2 Urine WBC 0-5 Ur Squamous Epith Cells 3-5 Urine Bacteria Trace Hyaline Casts 0-2 Assessment and Plan (1) Hemiplegia: Status: Acute (2) Renal infarct: Status: Acute Plan 25-year-old female with a past medical history significant for migraine headaches who presented to the ED due to right-sided flank pain that began 2 days ago when she woke up. progressively worsening R flank pain with renal infarct on imaging and recent presentation with concern for possible TIA Possible TIA with prior history of hemiplegic migraine -brain MRI with no acute or structural brain abnormality -Carotid Doppler ultrasound with no significant velocity altering stenosis -hypercoagulable workup ordered, HOANG -continue Eliquis 5 mg b.i.d. -neurology following R renal infarct on CT - pain management: tylenol, oxycodone, dilaudid - tele - nephrology consult - renal ultrasound with no evidence of renal artery stenosis, with echogenic parenchyma and right kidney mid to upper pole -CT abdomen and pelvis with small area of right mid to upper renal infarct, likely due to distal small branch occlusion -continue Eliquis 5 mg b.i.d. -HOANG, LDH ordered Costochondiritis -will initiate lidocaine patches and biofreeze full code VTE prophy: pneumoboots and eliquis Total time managing care of this patient today: 35 minutes. Quality Stroke Does the patient have a stroke diagnosis?: No VTE Prior VTE?: No VTE Risk Level:: Medical - moderate - high VTE Device Contraindication: N/A - Device Ordered VTE Drug Contraindication: Treatment Not Indicated
--- NOTE | 2025-09-10 14:32 | P.PNNP_ITS ---
Subjective Subjective Date of Service: 09/10/25 Interval history: Events noted. Family at bedside. Had a lengthy discussion with the patient. History of juvenile rheumatoid arthritis. History of palpitation few years ago and underwent workup including Holter monitoring. She had sinus tachycardia Physical Exam 2 Vital Signs: Vital Signs: Last Vital Signs Temp 97.7 F 09/10/25 12:07 Pulse 70 09/10/25 12:07 Resp 18 09/10/25 11:06 BP 111/78 09/10/25 12:07 Pulse Ox 98 09/10/25 11:06 O2 Del Method Room Air 09/10/25 11:06 BMI result Body Mass Index 24.3 Comfortable Neck supple no JVD. Lungs entry equal no rales. Heart S1-S2 heard no gallop or rub. Abdomen soft right upper quadrant tenderness along with a right CVA tenderness Neuro alert awake oriented. No asterixis. Extremities no edema. Objective Data Labs 09/10/25 05:57 09/10/25 05:57 Labs: Laboratory Results - last 24 hr 09/10/25 09/10/25 09/10/25 05:57 10:00 10:12 WBC 9.1 RBC 4.41 Hgb 12.3 Hct 37.9 MCV 85.9 MCH 27.9 MCHC 32.5 RDW 12.2 Plt Count 210 MPV 10.6 Absolute Nucleated RBC 0.000 Nucleated RBC % (auto) 0.0 Sodium 140 Potassium 4.1 Chloride 108 Carbon Dioxide 24 Anion Gap 12 BUN 6 L Creatinine 0.54 Estim Creat Clear Calc 107.6 Estimated GFR > 60 Random Glucose 91 Calcium 9.2 Lactate Dehydrogenase 306 H Urine Color Yellow Urine Appearance Clear Urine pH 8.0 Ur Specific [place] 1.020 Urine Protein Negative Urine Glucose (UA) Negative Urine Ketones 40 Urine Blood Negative Urine Nitrite Negative Ur Leukocyte Esterase Negative Urine RBC 0-2 Urine WBC 0-5 Ur Squamous Epith Cells 3-5 Urine Bacteria Trace Hyaline Casts 0-2 Procedures Date of Service Date of Service: 09/10/25 Assessment & Plan Assessment and plan (1) Renal infarct: Status: Acute Plan Young woman with right-sided flank pain with imaging suggestive of right renal infarct. Urinalysis is rather benign without any RBCs. LDH is elevated at more than 300. She needs adequate pain management and keep intake more than output Agree with anticoagulation pending workup. If she is discharged I will be happy to follow resistant outpatient. Time Spent With Patient Time: Total time managing care of this patient today ____ minutes. Progress Note: Quality Stroke Does the patient have a stroke diagnosis?: No
[2025-09-11 03:56] VITALS: BP 106/62; PULSE 89; RESP 18; TEMP 36.6; O2SAT 99
[2025-09-11 06:25] LABS: Hematocrit 37.5 % (37.0-47.0); Hemoglobin 12.3 g/dl (12.0-16.0); Mean Corpuscular HGB Conc 32.8 g/dl (31.0-35.0); Mean Corpuscular Hemoglobin 28.0 pg (27.0-33.0); Mean Corpuscular Volume 85.2 fL (80.0-98.0); NRBC Abs Auto 0.000 X10*3/uL (0.0-0.012); NRBC Pct Auto 0.0 /100WBC (0.0-0.2); Platelet Count 225 X10*3/uL (160-400); Red Blood Count 4.40 X10*6/uL (4.20-5.50); White Blood Count 9.7 X10*3/uL (4.8-10.8)
[2025-09-11 06:43] LABS: Anion Gap 9 (12-20); Blood Urea Nitrogen 7 mg/dL (9-16); Calcium 9.1 mg/dL (8.4-10.2); Carbon Dioxide 26 mmol/L (22-29); Chloride 109 mmol/L (96-108); Creatinine Clr Calc Pharmacy 98.4; Estimated Glomerular Filt Rate > 60; Potassium 4.3 mmol/L (3.3-5.1); Sodium 140 mmol/L (135-145)
[2025-09-11 07:46] VITALS: BP 110/70; PULSE 70; RESP 16; TEMP 36.7; O2SAT 99
[2025-09-11] MEDS: Lidocaine 4 % Patch ADH..PATCH 1 PATCH TRANSDERMA (08:43)
[2025-09-11] MEDS: 0.9 % Sodium Chloride Flush 3 ML SYRINGE IVFLUSH (08:45)
--- NOTE | 2025-09-11 11:40 | P.PNNP_ITS ---
Subjective Subjective Date of Service: 09/11/25 Interval history: No new events, doing okay Physical Exam 2 Vital Signs: Vital Signs: Last Vital Signs Temp 98.1 F 09/11/25 07:46 Pulse 70 09/11/25 07:46 Resp 16 09/11/25 07:46 BP 110/70 09/11/25 07:46 Pulse Ox 99 09/11/25 07:46 O2 Del Method Room Air 09/11/25 07:46 BMI result Body Mass Index 24.3 General: not in any acute distress, comfortable Nutritional Appearance: well nourished and overweight Eyes: appearance normal, both eyes and all related structures; Alignment and Position: alignment normal and position normal Neck: No lymphadenopathy, no thyromegaly Resp: bilateral air entry equal, no added sounds present Cardio: Regular rate, regular rhythm; Heart sounds: S1 normal heart sound present and S2 normal heart sound present GI: soft, tender right upper abdomen, no guarding, no hepatosplenomegaly : bladder normal to inspection, bladder normal to palpation, no renal angle tenderness Skin: no rashes or lesions noted and elasticity normal Neuro: alert, oriented x 3, moves all extremities Objective Data Labs 09/11/25 05:59 09/11/25 05:59 Labs: Laboratory Results - last 24 hr 09/11/25 05:59 WBC 9.7 RBC 4.40 Hgb 12.3 Hct 37.5 MCV 85.2 MCH 28.0 MCHC 32.8 RDW 12.0 Plt Count 225 MPV 10.6 Absolute Nucleated RBC 0.000 Nucleated RBC % (auto) 0.0 Sodium 140 Potassium 4.3 Chloride 109 H Carbon Dioxide 26 Anion Gap 9 L BUN 7 L Creatinine 0.59 Estim Creat Clear Calc 98.4 Estimated GFR > 60 Random Glucose 94 Calcium 9.1 Procedures Date of Service Date of Service: 09/11/25 Assessment & Plan Assessment and plan (1) Renal infarct: Status: Acute (2) Hemiplegia: Status: Acute (3) Patent foramen ovale: Status: Acute Plan Renal infarct: Patient has been right renal upper pole infarct of indeterminate age; possibly acute. She has history of juvenile rheumatoid arthritis, multiple episodes of hemiplegia possibly TIA.She had episodes of palpitation and a year ago for which she was placed on Holter for 24 hours which did not show any arrhythmia. Patient is 25-year-old, she is not on any contraceptives but never had history of or miscarriage, does not have a child either; questioning her fertility. Her mom had miscarriages and hypertension at a young age and has a family history of hypertension young age. Pending antiphospholipid antibody syndromes, other hypercoagulable states workup including factor 5 Leiden mutations, anti protein C and S antibodies. TTE with bubble study positive for patent foramen ovale. Please get Doppler of the lower extremities to look for any evidence of DVT. Can start the patient on oral apixaban for anticoagulation Continue on telemetry monitoring until she is discharged to look for any arrhythmias. Time Spent With Patient Time: Total time managing care of this patient today ____ minutes. Progress Note: Quality Stroke Does the patient have a stroke diagnosis?: No
[2025-09-11 11:41] VITALS: BP 121/76; PULSE 76; RESP 16; TEMP 36.7; O2SAT 99
--- NOTE | 2025-09-11 11:44 | PM.CNGS ---
History of Present Illness Consult details Consult date: 09/11/25 Reason for consult: other (Right renal infarct) Narrative: Very pleasant 25-year-old female with very minimal past medical history presented to the emergency room with right flank pain. She reports that she had a migraine and she woke up and felt a right flank pain. Initially she associated this with taking 2 medications close together. It persisted and she talked to her primary care team who requested that she come to the emergency room. Upon workup in the emergency room she had a headache and left arm numbness was worked up with CT had and neck which turned out to be negative. But upon CT of the abdomen it was interestingly found that she had a small mid pole renal infarct. Upon further discussion with her she denies use of oral contraceptives. She has no history of or . She has no personal history or family history of clotting disorders. At the current time appears to be doing well. She was up in bed tolerating regular diet of pancakes. [facility] Past Medical History Medical History Headache, hemiplegic migraine Slurred speech Headache Social History Social History Household Members: Spouse Housing: Apartment Do you presently have visiting nurse or other home services: No Alcohol intake: current Alcohol intake frequency: does not drink Comment: Social Patient Tobacco Use Status: Never used Tobacco service: No Meds Allergies Allergy/AdvReac Type Severity Reaction Status Date / Time Penicillins (PENICILLINS) Allergy Unknown HIVES Verified 09/08/25 15:41 Active Medications: Current Medications Acetaminophen (Acetaminophen 325 Mg Tablet) 975 mg PO Q6H PRN PRN Reason: Pain, Mild 1-3,fever,headache Last Admin: 09/10/25 08:41 Dose: 975 mg Calcium Carbonate (Calcium Carbonate 750 Mg Tab.Chew) 750 mg PO Q4H PRN PRN Reason: Heartburn Hydromorphone HCl (Hydromorphone Hcl 1 Mg/Ml Syringe) 0.5 mg IVPUSH Q4H PRN; Protocol PRN Reason: Pain, Severe (Pain Scale 7-10) Lidocaine (Lidocaine 4 % Patch Adh..Patch) 1 patch TRANSDERMA DAILY [facility]; Protocol Last Admin: 09/11/25 08:43 Dose: 1 patch Magnesium Hydroxide (Milk Of Magnesia 30 Ml Oral.Susp) 30 ml PO DAILY PRN PRN Reason: Constipation Melatonin (Melatonin 3 Mg Tablet) 6 mg PO BEDTIME PRN PRN Reason: Insomnia Ondansetron HCl (Ondansetron Hcl 4 Mg/2 Ml Vial) 4 mg IVPUSH Q8H PRN PRN Reason: Nausea and Vomiting Last Admin: 09/10/25 12:04 Dose: 4 mg Oxycodone HCl (Oxycodone Hcl Immed Release 5 Mg Tablet) 5 mg PO Q6H PRN PRN Reason: Pain, Moderate(Pain Scale 4-6) Last Admin: 09/10/25 10:36 Dose: 5 mg Sodium Chloride (0.9 % Sodium Chloride Flush 3 Ml Syringe) 3 ml IVFLUSH [facility] Last Admin: 09/11/25 08:45 Dose: 3 ml Home Medications ?Medication ?Instructions ?Recorded ?Confirmed ?Last Taken ?Type rimegepant 75 mg disintegrating 75 mg PO Q2D PRN migraine headache 09/09/25 09/09/25 09/06/25 History tablet (Nurtec ODT) Physical Exam Vital Signs: Vital Signs: Last Vital Signs Temp 98.1 F 09/11/25 11:41 Pulse 76 09/11/25 11:41 Resp 16 09/11/25 11:41 BP 121/76 09/11/25 11:41 Pulse Ox 99 09/11/25 11:41 O2 Del Method Room Air 09/11/25 11:41 BMI result Body Mass Index 24.3 GI: Other: Right flank nontender Results Labs 09/11/25 05:59 09/11/25 05:59 Labs: Abnormal lab results 09/11/25 Range/Units 05:59 Chloride 109 H (96-108) mmol/L Anion Gap 9 L (12-20) BUN 7 L (9-16) mg/dL Short CBC 09/11/25 Range/Units 05:59 WBC 9.7 (4.8-10.8) X10*3/uL Hgb 12.3 (12.0-16.0) g/dl Hct 37.5 (37.0-47.0) % Plt Count 225 (160-400) X10*3/uL BMP 09/11/25 05:59 Sodium 140 Potassium 4.3 Chloride 109 H Carbon Dioxide 26 BUN 7 L Creatinine 0.59 Calcium 9.1 Urine 09/08/25 09/10/25 Range/Units 18:19 10:00 Urine Color Yellow Yellow Urine Appearance Clear Clear Urine pH 7.5 8.0 (5.0-9.0) Ur Specific Fletcher 1.010 1.020 (1.005-1.025) Urine Protein Negative Negative (Neg-Trace) mg/dL Urine Glucose (UA) Negative Negative (Negative) mg/dL All other labs normal. Assessment and Plan (1) Renal infarct: Status: Acute Plan In short patient has a small right mid to upper renal infarct. It is a very small branch occlusion. Most likely etiology of her right flank pain. She has been anticoagulated with Eliquis at the current time. Appears to be doing relatively well otherwise. Due to the small nature of this I would not recommend any sort of intervention other than anticoagulation. More interestingly is what was the cause of this. She may require Hematology-Oncology workup. May require Eliquis for extended period. She can follow up with us on an as-needed basis. Thank you for allowing us to assist in her care. If there are any questions or concerns please do not hesitate to contact us. Procedures Date of Service Date of Service: 09/11/25
--- NOTE | 2025-09-11 13:58 | PM.DS ---
DS: Providers Provider Date of Service: 09/11/25 Date of admission: 09/09/25 02:00 Date of discharge: 09/11/25 Primary care physician: Luisana Nettles Consults: 09/09/25 02:01 Consult to Nephrology Routine Consulting Provider: [facility] Reason for consultation: renal infarct Has provider been notified: No Consult to Neurology Routine Consulting Provider: [facility] Reason for consultation: renal infarct, ?previous TIA Has provider been notified: No 09/10/25 18:19 Consult to Vascular Surgery Routine Consulting Provider: [facility] Reason for consultation: renal infarct Has provider been notified: No DS: Diagnosis Discharge Diagnosis (1) Renal infarct: Status: Acute DS: Summary Hospital Course Hospital Course: 25-year-old female with a past medical history significant for migraine headaches who presented to the ED due to right-sided flank pain that began 2 days ago when she woke up. progressively worsening R flank pain with CTs abdomen and pelvis showing small area of right mid to upper renal infarct likely due to distal small branch occlusion. Brain MRI with no acute or structural brain abnormality, carotid Doppler ultrasound with no significant velocity alternating stenosis, TTE with PFO, lower extremity ultrasound negative for DVT. Hypercoagulable workup ordered, patient advised on following up as an outpatient with PCP for results. Patient discharged on Eliquis 5 mg b.i.d. hemiplegic migraine -brain MRI with no acute or structural brain abnormality -Carotid Doppler ultrasound with no significant velocity altering stenosis -hypercoagulable workup ordered, HOANG, follow up with PCP -continue Eliquis 5 mg b.i.d. R renal infarct, with elevated LDH - renal ultrasound with no evidence of renal artery stenosis, with echogenic parenchyma and right kidney mid to upper pole -CT abdomen and pelvis with small area of right mid to upper renal infarct, likely due to distal small branch occlusion - pain management: tylenol and oxy - nephrology to follow as outpatient -continue Eliquis 5 mg b.i.d. -HOANG pending Costochondiritis -continue lidocaine patches and may use topical biofreeze or voltaren gel All new and continued medications were discussed in depth with the patient, and new prescriptions were given directly to patient and/or verification of the prescriptions were sent to patient's preferred pharmacy directly. All side effects were discussed. Follow-up instructions were given. Patient voiced understanding. Patient was given the opportunity ask questions and express concerns, all of which were answered to their satisfaction. Patient was instructed to follow-up with her PCP within 3 to 10 days of discharge and head to the nearest emergency room or call 911 if symptoms worsen or new symptoms develop. This is a summary of the patient's stay; for more complete details please see chart. More than 35 minutes was spent with patient regarding workup, diagnosis and follow-up. Time Attestation Discharge Coordination Time (in mins): 35 minutes Quality: Safe Use of Opioids Does Pt have an Active Cancer Diagnosis on the Problem List?: No Quality: Stroke Does the patient have a stroke diagnosis?: No Physical Exam Exam: Exam: General: AxOx3, No acute distress Head: AT/NC ENT: Moist mucous membranes Neck: supple CVS; RRR, S1 S2 normal Lungs: Clear bilateral breath sounds, no wheezes or crackles Abd: Soft non tender, non distended Ext: No edema and no calf tenderness MSK: moving all 4 limbs, Right back mild tenderness with lidocaine patch in place Skin: No cyanosis or edema Psych: Cooperative with exam Neurology: no focal deficit Vital Signs: Vital Signs: Last Vital Signs Temp 98.1 F 09/11/25 11:41 Pulse 76 09/11/25 11:41 Resp 16 09/11/25 11:41 BP 121/76 09/11/25 11:41 Pulse Ox 99 09/11/25 11:41 O2 Del Method Room Air 09/11/25 11:41 BMI result Body Mass Index 24.3 DS: Data Data Completed and Pending Labs on day of discharge: Laboratory Results - last 24 hr 09/11/25 05:59 WBC 9.7 RBC 4.40 Hgb 12.3 Hct 37.5 MCV 85.2 MCH 28.0 MCHC 32.8 RDW 12.0 Plt Count 225 MPV 10.6 Absolute Nucleated RBC 0.000 Nucleated RBC % (auto) 0.0 Sodium 140 Potassium 4.3 Chloride 109 H Carbon Dioxide 26 Anion Gap 9 L BUN 7 L Creatinine 0.59 Estim Creat Clear Calc 98.4 Estimated GFR > 60 Random Glucose 94 Calcium 9.1 Discharge Plan Discharge Anticipated Discharge Date/Time: 09/11/25 14:30 Patient Disposition: Home, Self-Care Discharge Diagnosis: Right renal infarct hemiplegic migraine Referrals: AthRaoul sanchez MD [Physician, Nephrology] - 1 Week Fabiola Monreal MD [Physician, Neurology[facility], [facility] - 1 Week Discharge Medications: New Eliquis 5 mg Tablet 5 mg PO BID Qty: 30 3RF lidocaine [Lidocaine Pain Relief] 4 % Adhesive Patch,Medicated 1 patch transdermal DAILY Qty: 10 0RF Protocol: Apply to: Apply to: right lower back oxycodone 5 mg Tablet 5 mg PO Q6H PRN (Reason: Pain, Moderate(Pain Scale 4-6)) Qty: 15 0RF Rx Instructions: Partial Fill upon patient request. Continued verapamil 120 mg capsule,ext rel. pellets 24 hr 120 mg PO BEDTIME 30 Days Qty: 30 5RF Held Nurtec ODT 75 mg tablet,disintegrating 75 mg PO Q2D PRN (Reason: migraine headache) Hold Instructions: Resume on 09/18/25. until seen by neurology Discharge Orders: Discharge Order (Routine); Ordered 09/11/25 Ordered By: Alexis Faustin Activity on Discharge: As tolerated Stand Alone Forms: Patient Portal Discharge page Print Language: [place] Citizen Care Plan Goals: continue taking Eliquis for renal infarct follow up with primary care and nephrology Await labs for hypercoabulable state monitor for any urinary bleeding Health Concerns: Renal infarct Hemiplegice migraine Plan of Treatment: initiate Eliquis 5mg twice a day, await hypercoagulable work up follow up as outpatient with primary care and nephrology continue taking verapamil for migraines, follow up with neurology Assessment: 25-year-old female with a past medical history significant for migraine headaches who presented to the ED due to right-sided flank pain that began 2 days ago when she woke up. progressively worsening R flank pain with CTs abdomen and pelvis showing small area of right mid to upper renal infarct likely due to distal small branch occlusion. Brain MRI with no acute or structural brain abnormality, carotid Doppler ultrasound with no significant velocity alternating stenosis, TTE with PFO, lower extremity ultrasound negative for DVT. Hypercoagulable workup ordered in hospital prior to initiating anticoagulation Patient Instructions: Hypercoagulation (DC)
--- NOTE | 2025-09-11 14:10 | MHC.CM.PN ---
PATIENT IS MEDICALLY CLEARED FOR DISCHARGE HOME SELF-CARE TODAY, HER WILL TRANSPORT HER HOME TODAY.
[2025-09-13 19:44] LABS: Protein S Activity rflx Tot&Fr 81 % normal (60-140)
[2025-09-14 07:03] LABS: Beta-2 Glycoprotein I Ab IgG <2.0 U/mL (<20.0); Beta-2 Glycoprotein I Ab IgM <2.0 U/mL (<20.0); Beta-2 Glycoprotein I Ab, IgA <2.0 U/mL (<20.0); Phosphatidylserine PT IgM 9 U (<=30)
[2025-09-15 21:47] LABS: Anti Nuclear Antibody Screen NEGATIVE (NEGATIVE)
== END 2025-09-11 14:56 | disposition home or self-care (01) | DRG 54 ==
LOC: HO.ED 21:12 → HO.EDOVER 09-09 02:04 → HO.IMC 09-09 16:25
PROVIDERS: Internal Medicine Critical Care Medicine; Physician Assistant Medical; Admitting Provider Physician Assistant; Emergency Provider Emergency Medicine; Visit Provider Student in an Organized Health Care Education/Training Program
DX: G43.409 Hemiplegic migraine, not intractable, without status migrainosus (principal); N28.0 Ischemia and infarction of kidney; M94.0 Chondrocostal junction syndrome [Tietze]; M08.90 Juvenile arthritis, unspecified, unspecified site; Q21.12 Patent foramen ovale; R74.02 Elevation of levels of lactic acid dehydrogenase [LDH]
CPT/HCPCS: 36415; 70551; 71275; 74174; 74177; 80048; 80076; 81001; 81003; 81241; 83516; 83615; 84702; 85025; 85027; 85302; 85303; 85306; 86038; 86146; 86147; 86225; 93306; 93880; 93970; 93975; 99285; J1885; J2270; J2405; J7120; Q9957; Q9967

== ENCOUNTER → 2025-09-08 21:53 | Outpatient (BNV) | payer OTHER, SELFPAY | PROVIDERS: Emergency Provider Emergency Medicine; Visit Provider Radiology Diagnostic Radiology | DX: N28.0 Ischemia and infarction of kidney (principal) | CPT/HCPCS: 74177 ==

== ENCOUNTER → 2025-09-09 00:01 | Outpatient (BNV) | payer OTHER, SELFPAY | PROVIDERS: Emergency Provider Emergency Medicine; Visit Provider Radiology Diagnostic Radiology | DX: R10.9 Unspecified abdominal pain (principal); N28.0 Ischemia and infarction of kidney; R07.9 Chest pain, unspecified; G45.9 Transient cerebral ischemic attack, unspecified | CPT/HCPCS: 70551; 71275; 74174; 93880; 93975 ==

== ENCOUNTER 2025-09-09 02:00 | Outpatient (BNV) | payer OTHER, SELFPAY | END 2025-09-11 12:27 | PROVIDERS: Admitting Provider Physician Assistant; Emergency Provider Emergency Medicine; Visit Provider Radiology Diagnostic Radiology | DX: R22.43 Localized swelling, mass and lump, lower limb, bilateral (principal) | CPT/HCPCS: 93970 ==

== ENCOUNTER 2025-09-09 02:00 | Outpatient (BNV) | payer OTHER, SELFPAY | END 2025-09-09 16:00 | PROVIDERS: Admitting Provider Physician Assistant; Emergency Provider Emergency Medicine; Visit Provider Internal Medicine | DX: Q21.12 Patent foramen ovale (principal) | CPT/HCPCS: 93306 ==

== ENCOUNTER → 2025-09-09 02:00 | Outpatient (BNV) | payer OTHER, SELFPAY | PROVIDERS: Admitting Provider Physician Assistant; Emergency Provider Emergency Medicine; Visit Provider Nurse Practitioner | DX: G43.109 Migraine with aura, not intractable, without status migrainosus (principal); N28.0 Ischemia and infarction of kidney | CPT/HCPCS: 99222 ==

== ENCOUNTER → 2025-09-09 02:00 | Outpatient (BNV) | payer OTHER, SELFPAY | PROVIDERS: Admitting Provider Physician Assistant; Emergency Provider Emergency Medicine; Visit Provider Surgery Vascular Surgery | DX: N28.0 Ischemia and infarction of kidney (principal) | CPT/HCPCS: 99222 ==

== ENCOUNTER → 2025-09-09 02:00 | Outpatient (BNV) | payer OTHER, SELFPAY | PROVIDERS: Admitting Provider Physician Assistant; Emergency Provider Emergency Medicine; Visit Provider Internal Medicine Hypertension Specialist | DX: N28.0 Ischemia and infarction of kidney (principal) | CPT/HCPCS: 99232 ==

== ENCOUNTER → 2025-09-09 02:00 | Outpatient (BNV) | payer OTHER, SELFPAY | PROVIDERS: Admitting Provider Physician Assistant; Emergency Provider Emergency Medicine; Visit Provider Student in an Organized Health Care Education/Training Program | DX: G81.90 Hemiplegia, unspecified affecting unspecified side (principal); N28.0 Ischemia and infarction of kidney | CPT/HCPCS: 99223; 99232; 99499 ==

== ENCOUNTER → 2025-09-09 02:00 | Outpatient (BNV) | payer OTHER, SELFPAY | PROVIDERS: Admitting Provider Physician Assistant; Emergency Provider Emergency Medicine; Visit Provider Internal Medicine Critical Care Medicine | DX: N28.0 Ischemia and infarction of kidney (principal) | CPT/HCPCS: 99253 ==

== ENCOUNTER 2025-09-21 13:15 | Outpatient (AMB) | payer OTHER, SELFPAY ==
[2025-09-21 13:32] VITALS: BP 122/78; PULSE 74; RESP 16; O2SAT 99; BMI 26.8
--- NOTE | 2025-09-21 13:32 | MHC.OFFVIS ---
Vital Signs 09/21/25 13:32 Height 4 ft 9 in Weight 124 lb BMI 26.8 BP 122/78 Blood Pressure Location Rt brachial Position Sitting Respiration 16 Pulse 74 Pulse Source Pulse Oximeter Pulse Oximetry (%) 99 Oxygen Delivery Method Room Air Intake Visit Reasons: sooner appt Job Service Specialist Required: No Allergies Penicillins (PENICILLINS) Allergy (Unknown, Verified 09/21/25 13:34) HIVES HPI Comments Details: Alejandra is a 25-year-old female patient presenting to the clinic today for a follow up visit. She has history of hemiplegic migraine with aphasia, left-sided numbness, and weakness. She also frequently has migraine with aura. She has had normal neuroimaging including a CT of the brain and neck as well as a recent MRI of the brain without contrast that was performed on 09/09/2025 during a recent hospitalization. When I initially saw her, her migraines included visual auras occurring a few times per month but she was still having some day-to-day headaches at a lesser degree. I started her on verapamil 120 mg nightly and Nurtec as needed. On 09/09/2025 she presented to the emergency department after experiencing right upper quadrant abdominal pain and was found to have a renal infarct. She had initial concerns regarding her new medications as potential cause however upon review of medications and interactions this did not seem likely. Still however, she opted to stopped the verapamil. She was seen by Nephrology and had a workup during her admission including an echocardiogram and carotid Doppler. Her echocardiogram was significant for PFO. The recommendations for this were not clear. She will be seeing primary care this week and plans to question whether or not they recommend closure. She does not have any follow up with Cardiology. She is interested in starting a new preventive therapy today and would like to remain on the Nurtec 75 mg as needed as this has been working well for her for her acute therapy. She continues with migraines including visual auras a few times per month but with less intense headaches on a near daily basis. Headache characteristics: Time of onset:childhood Location:Right sided Radiation:None Positional component:None Character:Throbbing Severity:Can reach 10/10 Duration:More severe migraines can last 12hrs Frequency:Daily but with more severe migraines occurring 2 times per month Acute aggravating factors:Unknown Acute relieving factors:Unknown Associated symptoms:Light and sound sensitivity, nasea, and dizziness Aura:Yes, visual (squiggly lines in vision), aphasia and cognative slowing Headache triggers:Unknown Relation to menses:Possibly Other related background information: Sleep:Reports that she gets adequate sleep but sometimes still feels tired in the morning. She snores only on occasion. Stressors:Some stressors in her home life. She is also a ful time RN Hydration: Drinks plenty of water Caffeine intake: Rarely. Not daily Alcohol intake:Socially Substance use: None Tobacco use:None Last eye exam: Within the last couple of months - did get glasses for some reduced visual acuity Last dental visit:Within the last 6 months. Denies clenching or grinding History of head injury:None Family planning considerations: No plans to become . Using condoms with her Past medication trials: Excedrine- Some benefit Tylenol- No benefit Ibuprofen- No benefit Verapamil-stopped for renal infarct with no clear relationship however we will avoid use moving forward Prior workup: 07/08/2025 CT head/CTA head and neck- Normal 09/09/2025: MRI of the brain-Normal [facility] Medical History Headache, hemiplegic migraine Slurred speech Headache Social History Household Members: Spouse Housing: Apartment Do you presently have visiting nurse or other home services: No Alcohol intake: current Alcohol intake frequency: does not drink Comment: Social Patient Tobacco Use Status: Never used Tobacco service: No Review of Systems Const All systems reviewed & are unremarkable except as noted in HPI and below Physical Exam Vital Signs: Last Vital Signs Pulse 74 09/21/25 13:32 Resp 16 09/21/25 13:32 BP 122/78 09/21/25 13:32 Pulse Ox 99 09/21/25 13:32 Oxygen Delivery Method Room Air 09/21/25 13:32 BMI result Body Mass Index 26.8 Const General: cooperative, healthy appearing, comfortable and no acute distress Nutritional Appearance: well nourished Orientation/consciousness: patient oriented x3 Limitations: no limitations HEENT Head: Yes normal to inspection and Yes normocephalic Eyes General: appearance normal, both eyes and all related structures Visual Goins: normal visual goins by confrontation Alignment and Position: alignment normal Periorbital: periorbital findings normal Eyelids: Yes eyelids normal Conjunctivae: conjunctivae normal Sclerae: sclerae normal Neck Neck: Yes normal visual inspection and Yes full ROM General: Yes no CVA tenderness Back/Spine/Pelvis Back: no CVA tenderness Cervical Spine: normal cervical lordosis Thoracic/Lumbar Spine: thoracic and lumbar spine normal to inspection Neuro General: patient oriented x3 and deep tendon reflexes 2+ bilaterally Cranial nerves: Yes CN's II-XII intact bilaterally and Yes Facial sensation intact/muscles of mastication intact Cognition (Neuro): normal cognition Gait exam (Neuro): Normal gait present Motor exam (neuro): 5/5 motor strength present throughout and no tremor noted Sensory Exam: double simultaneous stimulation for sensation normal Romberg Test: Negative Pupils: Normal pupillary reactivity/response: bilateral Psych Appearance: grossly normal Mental Status: mental status grossly normal Speech and movement: Normal speech and movement present and Clear speech present Affect: normal affect Attitude: cooperative Thought process: Normal thought process present Thought content: Normal thought content present Insight: Good insight present (Psych) Judgement: Good judgement present (Psych) Assessment & Plan Assessment & Plan (1) Patent foramen ovale: Code(s): Q21.12 - Patent foramen ovale Category: Medical (2) Migraine with aura and without status migrainosus, not intractable: Code(s): G43.109 - Migraine with aura, not intractable, without status migrainosus Category: Medical (3) Renal infarct: Code(s): N28.0 - Ischemia and infarction of kidney Category: Medical Plan Alejandra is a 25-year-old female patient presenting to the clinic today for a follow up visit. She has a history of hemiplegic migraine and migraine with aura for which she was started on verapamil and Nurtec but subsequently developed a renal infarct with no clear relationship to the medications however her verapamil was discontinued. Her neuroimaging was normal. Her cardiac workup however revealed a PFO and it is not clear given her history if the recommendation is to explore options for closure. She will be discussing this with the primary care on though she may need to see Cardiology for their recommendations. For now, we will continue her Nurtec as needed. For her migraine prevention, we discussed some options today and we will 1st try propranolol 10 mg twice daily for 1 week and then increase to 20 mg twice daily. If this does not work, I would consider starting her on a once monthly injectable anti CGRP agent. -continue Nurtec 75 mg as needed -start propranolol 10 mg twice a day for 1 week and then increase to 20 mg twice a day -follow up with primary care and Nephrology and consider input from Cardiology for possible PFO closure if indicated -follow up in 1 month or sooner if needed Medications: New propranolol Take 1 tablet by mouth twice daily for 1 week and then increase to 2 tablets by mouth twice daily 20 mg (2 x 10 mg) PO BID 120 tabs 2RF 30 days Discontinued verapamil ER Discontinued Reason: Doctor's Order 120 mg PO BEDTIME 30 days 30 caps 5RF Coding Level of Care Code Est Pt Level 4 (35926) Diagnoses Patent foramen ovale Q21.12 Migraine with aura and without status migrainosus, not intractable G43.109 Renal infarct N28.0
--- OUTSIDE RECORDS SUMMARY | 2025-09-21 16:53 | XMS_ITS | Clinical Summary ---
Author Organization [facility] [address] [place] [address] [place] [phone] Phone Care Team Providers Care [employer] Name Role Phone Alvaro Shearer MD Primary [...] breast 08/04/2016 JRA (juvenile rheumatoid art hritis) ([facility] V24, [facility] V28) 08/04/2016 Overview (10/20/2024): Mild pauciarticular JRA Vitamin D deficiency 08/04/2016 Encounters Date Type Department Care Team Description 09/14/2025 Telephone Adult Medicine [address] [phone] Alvaro Shearer MD 07/08/2025 Telephone Adult Medicine [address] [phone] Jessi Paulino MA from Last 3 Months Immunizations Immunization Administration Dates Next Due DTaP (Infanrix) 6wks to less than 7yo ,07/05/1999,1998,08/03,1998 [id number] (Pentacel) 2mo to less than 5yo 08/29/2000,04/04/1999,1998,05/31 [...] COMMENT: 05/26 JRA (juvenile rheumatoid art hritis) ([facility] V24, [facility] V28) 08/04/2016 DX:JRA (juvenile rheumatoid arthritis) ([facility]); COMMENT: Mild pauciarticular JRA Family History Medical [...] 08/01/2024 2:11 PM EDT Plan of Treatment Upcoming Encounters Date Type Department Care Team (Late st Contact Info) Description 09/24/2025 10:30 AM EST Office Visit Adult Medicine [address] [phone] Alvaro Shearer MD [address] [place], [place] 01/26/2026 8:00 AM EDT Office Visit Adult Medicine [address] [phone] Aracely Wetzel PA [address] [place], [place] Health Maintenance Due Date Last Done Comments COVID-19 Vaccine (#1) 2003 Pneumococcal Vaccine: Pediatrics (0 to 5 Years) and At-Risk Patients (6 to 49 Years) (1 of 2 - PCV) 2017 Social Influencers of Health Screening 09/24/2022 Depression Screening 10/22/2024 Influenza Vaccine (#1) 2025 , 07/31/2023, 10/03/2018, Additional history exists Cervical Cancer Screening: Pap Smear 11/13/2026 11/13/2023, 11/13/2023 Cholesterol Screening (Lipid Panel) 07/31/2028 [...] Anatomical Region Laterality Modality Computed Tomogra phy us Provider [facility] PROCEDURES Final Result * Gonorrhea/Chlamydia Screening (11/13/2023) Gonorrhea/Chla mydia Screening abstracted Result [facility] Historical Provider HEALTH MAINTENANCE Final Result * Pap smear (11/13/2023) 11/13/2023 Narrative HISTORICAL TESTING LAB RESULTING AGENCY - 11/23/2023 8:35 AM EST [id number] THINPREP PAP, IMAGED: NEGATIVE FOR SQUAMOUS INTRAEPITHELIAL LESION AND MALIGNANCY . MELIA HESS , AIME(ASCP) (CASE ELECTRONICALLY SIGNED 11 22 2023) ADEQUACY: SATISFACTORY ENDOCERVICAL/TRANSFORMATION ZONE COMPONENT PRESENT. SOURCE: THINPREP PAP HPV IF ASCUS, CERVICAL, IMAGED CLINICAL INFORMATION: HPV IF DIAGNOSIS OF ASCUS. PAP HX NEGATIVE, [Z01.419] Result [facility] Shannon Kay CNM LAB CYTOLOGY ORDERABLES Final R esult HISTORICAL TESTING LAB RESULTING AGENCY * Lipid panel (07/31/2023) Pathologist [facility] LDL/HDL Ratio 3 0 - 4 Triglycerides 54 0 - 150 mg/dL Cholesterol 153 0 - 200 mg/dL HDL 53 >=40 mg/dL LDL Cholesterol 90 0 - 100 mg/dL Blood Venous blood specimen / Unknown Result [facility] Provider LAB BLOOD ORDERABLES Lucretia l Result * HIV Screening (10/03/2018) Pathologist [facility] HIV Screening abstracted Result [facility] Historical Provider HEALTH MAINTENANCE Final Result * Hepatitis C Screening (10/03/2018) Pathologist [facility] Hepatitis C Screening abstracted Result [facility] Historical Provider HEALTH MAINTENANCE Final Result from Last 3 Months or Most Recently Relevant to Health Maintenance Insurance Care Teams [employer] Relationship Specialty Start Date End Date Alvaro Shearer MD [address] [place] [phone] PCP - General 05/25/23
== END 2025-09-21 14:09 | disposition home or self-care (01) ==
LOC: HO.HSM 13:15
PROVIDERS: Visit Provider Nurse Practitioner
DX: Q21.12 Patent foramen ovale (principal); G43.109 Migraine with aura, not intractable, without status migrainosus; N28.0 Ischemia and infarction of kidney
CPT/HCPCS: 99214

== ENCOUNTER → 2025-09-24 16:04 | Outpatient (AMB) | payer OTHER, SELFPAY ==
--- OUTSIDE RECORDS SUMMARY | 2025-09-24 10:30 | XMS_ITS | Encounter Summary ---
Author Organization [facility] Address [address] [place] [address] Care Team Providers Care Teacher Physically Impaired Name Role Phone Alvaro Shearer MD Primary Care Provider Reason for Referral * Consultation (Routine) - Authorized Specialty Diagnoses / Procedures Referred By Contrebecca t Referred To Contact Cardiology Diagnoses Patent foramen ovale Alvaro Shearer MD [address] [place] [address] Phone: tel: fax: [facility] [address] [place] [id number] Phone: tel: fax: Referral ID Status Reason Start Date Expiration Date Visits Requested Visits Authorized [id number] Authorized Specialty Services Required 09/24/2025 09/24/2026 1 1 Reason for Visit * Reason Comments Hospital Follow-up [facility]/C 09/11/25 Encounter Details Date Type Department Care Team (Late st Contact Info) Description 09/24/2025 10:30 AM EST Office Visit Adult Medicine [address] [phone] Alvaro Shearer MD [address] [place] [address] Hospital discharge follow-up (Primary Dx); Renal infarct ([facility]/HCC V24); 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 No 09/24/2025 Food Access & Nutrition Answer Date Rec orded Do you have access to a vari ety of food including fruits and vegetables? No 09/24/2025 Access to Healthcare Answer Date Record ed Within the last 3 months, ho w many times did you visit the emergency department for your medical care? 1 09/24/2025 Health Literacy Answer Date Recorded How often do you need to hav e someone help you when you read instructions, pamphlets, or other written material from your doctor or pharmacy? Never 09/24/2025 Caregiver: How often do you need to have someone help you when you read instructions, pamphlets, or other written material from your doctor or pharmacy? Not on file 09/24/2025 Financial Risk Answer Date Recorded How hard is it for you to pa y for the very basics like food, housing, medical care, and air conditioning / heating? Not very hard 09/24/2025 Transportation Answer Date Recorded Has the lack of transportati on kept you from meetings, work, or from getting things needed for daily living? No Has the lack of transportati on kept you from medical appointments or from getting medications? No 09/24/2025 Social Isolation Answer Date Recorded How often do you feel lonely or isolated from th ose around you? Never 09/24/2025 Food Risk Answer Date Recorded Within the past 12 months we worried whether our food would run out before we got money to buy more. Never true 09/24/2025 Within the past 12 months th e food we bought just didn't last and we didn't have money to get more. Never true 09/24/2025 Dependent Care Answer Date Recorded Do you need help finding or paying for care for your loved ones. For example, childcare attendant or elderly care for an older adult? No 09/24/2025 Education Answer Date Recorded Do you think completing more education or training, like finishing a GED, going to college, or learning a trade, would be helpful for you? No 09/24/2025 Employment and Income Answer Date Recor ded During the last four weeks, have you been actively looking for work? No 09/24/2025 Living Situation Answer Date Recorded What is your living situation? Unrecognized valu e 09/24/2025 Comments No Sex and Gender Information Value Date Recorded Sex Assigned at Not on file Legal Sex Female 1:31 AM EST Gender Identity Not on file Sexual Orientation Not on file documented as of this encounter Last Filed Vital Signs Vital Sign Reading Time Taken Comments Blood Pressure 121/72 09/24/2025 10:21 AM EST Pulse 60 09/24/2025 10:21 AM EST Temperature 36.6 C (97.9 F) 09/24/2025 10:21 AM EST Respiratory Rate 15 09/24/2025 10:21 AM EST Oxygen Saturation 98% 09/24/2025 10:21 AM EST Inhaled Oxygen Concentration - - Weight 57.3 kg (126 lb 6.4 oz) 09/24/2025 10:21 AM EST Height 144.8 cm (4' 9 ) 09/24/2025 10:21 AM EST Body Mass Index 27.35 09/24/2025 10:21 AM EST documented in this encounter Ordered Prescriptions Prescription Sig Dispense Quantity Refills Last Filled Start Date End Date Eliquis 5 mg tablet Take 1 tablet (5 mg total) by mouth 2 (two) times a day. 180 each 09/24/2025 documented in this encounter Progress Notes * Lizzy Andersen MA - 09/24/2025 10:30 AM EST Visit Vitals BP 121/72 Pulse 60 Temp 36.6 ??C (97.9 ??F) (Temporal) Resp 15 Ht 1.448 m (57 ) Wt 57.3 kg (126 lb 6.4 oz) LMP 09/14/2025 (Exact Date) SpO2 98% BMI 27.35 kg/m?? OB Status Having periods Smoking Status Never BSA 1.48 m?? Social Influencers of Health Who provided answers?: Self Within the past 12 months we worried whether our food would run out before we got money to buy more.: Never true Within the past 12 months the food we bought just didn't last and we didn't have money to get more.: Never true How hard is it for you to pay for the very basics like food, housing, medical care, and air conditioning / heating?: Not very hard Are you worried that in the next 2 months you may not have stable housing?: No Do you have access to a variety of food including fruits and vegetables?: No Within the last 3 months, how many times did you visit the emergency department for your medical care?: 1 Has the lack of transportation kept you from meetings, work, or from getting things needed for daily living?: No Has the lack of transportation kept you from medical appointments or from getting medications?: No How often do you feel lonely or isolated from those around you?: Never How often do you need to have someone help you when you read instructions, pamphlets, or other written material from your doctor or pharmacy?: Never Depression Screening Will the patient answer the depression risk questions?: Yes Over the last 2 weeks, how often have you been bothered by little interest or pleasure in doing things?: Not at all Over the last 2 weeks, how often have you been bothered by feeling down, depressed, or hopeless?: Not at all Depression Risk: 0 Additional Depression Screening PHQ -9 Depression Risk Score: 0 Screening Result: Negative Risk Category: Negative * Alvaro Shearer MD - 09/24/2025 10:30 AM EST Images from the original note were not included. TRANSITIONAL CARE MANAGEMENT NOTE Alejandra Cote is a 25 y.o. (: 2000) female presents today for a transitional care appointment. Subjective History Of Present Illness: The patient was discharged with a diagnosis of: Renal infarct Admit Date: September 08, 2025 Discharge Date: September 11, 2025 Date of Service: 09/24/2025 Facility: [facility] Date patient was contacted/or attempted to be contacted: September 14, 2025 (Unless visit is 2 days from discharge) The discharge summary and/or Transitional Care Management documentation was reviewed. HPI Patient with past history of hemiplegic migraine, presented to the ED with right-sided flank pain that began 2 days prior. She had a CT abdomen and pelvis which showed right mid to upper renal infarct likely due to distal small proximal occlusion. Brain MRI showed no acute structural normality. Carotid Doppler ultrasound was normal. However TTE showed PFO. Lower extremity ultrasound was negative for DVT. She had hypercoagulable workup including HOANG, antiphospholipid antibody, factor V Leiden mutation, protein C activity, protein S activity,, HOANG, double-stranded DNA beta-2 glycoprotein, anticardiolipin antibody were negative. CT angio chest was normal as well. CT angio abdominal pelvis was normal as well except for small area right mid to upper right renal infarct. Ultrasound renal Doppler was normal as well. Urinalysis is normal as well. CBC and CMP were normal as well. She was discharged on Eliquis which she has been taking. Denies any significant pain. She has an appointment with [facility] nephrology today. Comprehensive Medical and Social History: Problem List[1] Allergies[2] Current Outpatient Medications Medication Instructions Eliquis 5 mg, oral, 2 times daily hydrOXYzine HCL (ATARAX) 10 mg tablet Take 1 Tablet by mouth 3 times daily as needed for Anxiety. Nurtec 75 mg, Every other day propranoloL (INDERAL) 10 mg, 2 times daily Medical History[3] Surgical History[4] Social History Socioeconomic History Marital status: Single Spouse name: None Number of children: None Years of education: None Highest education level: None Occupational History None Tobacco Use Smoking status: Never Smokeless tobacco: Never Substance and Sexual Activity Alcohol use: Yes Drug use: No Sexual activity: None Comment: together x 7 years, 2.5 years Other Topics Concern None Social History Narrative None Family History[5] Immunization History Administered Date(s) Administered DTaP (Infanrix) 6wks to less than 7yo 2000, 2000, 1998, 07/05/1999, 05/05/2002 [id number] (Pentacel) 2mo to less than 5yo 1998, 1998, 04/04/1999, 08/29/2000 HPV, Quadrivalent 06/20/2010, 08/30/2010, 07/29/2011 Hepatitis A Pediatric (Havrix; Vaqta) 12mo to less than 19yo 08/12/2013, 07/30/2014 Hepatitis B Pediatric (Engerix B; Recombivax HB) to less than 20 yo 1998, 04/04/1999, 08/29/2000 IPV Inactivated polio (Ipol) 6wks and older 1998, 1998, 04/04/1999, 05/05/2002 Influenza Quadravalent, MDCK, 0.5ml, preservative free (Flucelvax) 6mo and older 10/03/2018, 07/31/2023 Influenza trivalent, 0.5mL, preservative free (Fluarix; FluLaval; Fluzone) ages 6mo and older (Afluria) 3 years and older 10/13/2016, 08/01/2024 MMR, measles mumps and rubella Live (Priorix; M-M-R II) 12mo and older 07/05/1999, 05/05/2002 Meningococcal MCV4P 06/20/2010, 07/30/2014 PPD Test 10/03/2018, 10/23/2018, 10/29/2019, 11/12/2019 Pfizer (ages 12 & older) SARS-CoV-2 COVID-19, mRNA, LNP-S, joyce-sucrose, preservative free 06/20/2022, 07/13/2022 Tdap Tetanus diptheria acellular pertussis (Boostrix; Adacel) 7yo and older 05/07/2009, 06/18/2019 Varicella live (Varivax) 12mo and older 04/04/1999, 05/15/2008 Health Maintenance Due Topic Date Due Pneumococcal Vaccine: Pediatrics (0 to 5 Years) and At-Risk Patients (6 to 49 Years) (1 of 2 - PCV)Never done COVID-19 Vaccine (3 - Pfizer risk series) 08/10/2022 Influenza Vaccine (1) 06/22/2025 Depression Screening (PHQ2/9): Depression Screening Will the patient answer the depression risk questions?: Yes Over the last 2 weeks, how often have you been bothered by little interest or pleasure in doing things?: Not at all Over the last 2 weeks, how often have you been bothered by feeling down, depressed, or hopeless?: Not at all Depression Risk: 0 PHQ9 Full Set of Questions Over the last 2 weeks, how often have you been bothered by little interest or pleasure in doing things?: Not at all Over the last 2 weeks, how often have you been bothered by feeling down, depressed, or hopeless?: Not at all PHQ -9 Depression Risk Score: 0 Screening Result: Negative Risk Category: Negative Social Influencer of Health (SIOH): Social Influencers of Health Who provided answers?: Self Within the past 12 months we worried whether our food would run out before we got money to buy more.: Never true Within the past 12 months the food we bought just didn't last and we didn't have money to get more.: Never true How hard is it for you to pay for the very basics like food, housing, medical care, and air conditioning / heating?: Not very hard Are you worried that in the next 2 months you may not have stable housing?: No Do you have access to a variety of food including fruits and vegetables?: No Within the last 3 months, how many times did you visit the emergency department for your medical care?: 1 Has the lack of transportation kept you from meetings, work, or from getting things needed for daily living?: No Has the lack of transportation kept you from medical appointments or from getting medications?: No How often do you feel lonely or isolated from those around you?: Never How often do you need to have someone help you when you read instructions, pamphlets, or other written material from your doctor or pharmacy?: Never Review of Systems: Review of Systems GENERAL: No malaise, significant weight loss or fever HEENT: No changes in hearing or vision, nose bleeds or other nasal problems NECK: No lumps, goiter, pain or significant neck swelling RESPIRATORY: No cough, wheezing or shortness of breath CARDIOVASCULAR: No chest pain, leg swelling or palpitations BREAST: no lumps, discharge, pain or change in skin GI: No abdominal discomfort, blood in stools or black stools Objective BP 121/72 Pulse 60 Temp 36.6 ??C (97.9 ??F) (Temporal) Resp 15 Ht 1.448 m (57 ) Wt 57.3 kg (126 lb 6.4 oz) BMI 27.35 kg/m?? 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 Dispense: 180 each;Refill: 0 Patient with recent hospital admission for right renal infarct of unclear etiology at this time. Itis presumed to be embolic but no clear embolic source was identified during the investigation. She was found to have a PFO, will have cardiology evaluation in this regard. Referral to [facility] cardiology placed. She will follow-up with [facility] nephrology as well. Refill on Eliquis sent, will treat for 3 months. I did advise her that studies have shown 30 to 60% cases of renal infarct may not have an identifiable cause. Advised on symptoms that should prompt her to seek further care. She also has hemiplegic migraine, follows with neurology at [facility]. She is currently on Nurtec as well as propranolol. Will continue for now. The complexity of medical decision making for this patient's transitional care is moderate. 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) ([facility]/HCC V24, CMS/HCC V28) Palpitations Vitamin D deficiency [2] Allergies Allergen Reactions Penicillins Rash [3] Past Medical History: Diagnosis Date Fibroadenoma of breast 08/04/2016 DX:Fibroadenoma of breast History of scarlet fever 08/04/2016 DX:History of scarlet fever; COMMENT: 01/24 History of viral meningitis 08/04/2016 DX:History of viral meningitis; COMMENT: 05/26 JRA (juvenile rheumatoid arthritis) ([facility] V24, CMS/HCC V28) 08/04/2016 DX:JRA (juvenile rheumatoid arthritis) ([facility]); COMMENT: Mild pauciarticular JRA Vitamin D deficiency 08/04/2016 DX:Vitamin D deficiency [4] Past Surgical History: Procedure Laterality Date WISDOM TOOTH EXTRACTION 2022 PROCEDURE: HISTORICAL WISDOM TEETH EXTRACTION; COMMENT: all 4 [5] Family History Problem Relation Name Age of Onset Hypertension Mother anxiety Breast cancer Mother 43.00 BRCA negative Other (Other: hyperlipidemia) Father alcohol Hypertension Maternal Grandmother asthma Breast cancer Maternal Grandmother 48.00 No Known Problems Maternal Grandfather Hypertension Paternal Grandmother migraines No Known Problems Paternal Grandfather no contact Breast cancer Aunt 35.00 maternal, BRCA negative No Known Problems Half-Sister mat No Known Problems Half-Sister mat No Known Problems Half-Sister pat No Known Problems Half-Sister pat Colon cancer Other maternal second cousin age 42 Breast cancer Other maternal great aunt age 70 documented in this encounter Plan of Treatment Upcoming Encounters Date Type Department Care Team (Late st Contact Info) Description 12/23/2025 8:30 AM EST Office Visit Adult Medicine [address] [phone] Alvaro Shearer MD [address] [place] [address] 01/26/2026 8:00 AM EDT Office Visit Adult Medicine [address] [phone] Aracely Wetzel PA [address] [place], [place] Scheduled Referrals Name Type Priority Associated Diagnoses Order Schedule Ambulatory referral to Cardiology Outpatient Referral Routine Patent foramen ovale 1 Occurrences starting 09/24/2025 until 09/24/2026 documented as of this encounter Visit Diagnoses Diagnosis Hospital discharge follow-up- Primary Other follow-up examination Renal infarct ([facility] V24) 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 Reorder 09/11/2025 09/24/2025 documented as of this encounter Historical Medications * This list may reflect changes made after this encounter. Nurtec 75 mg dispersible tablet Take 1 tablet (75 mg total) by mouth every other day. 08/21/2025 propranoloL (INDERAL) 10 mg tablet Take 1 tablet (10 mg total) by mouth 2 (two) times a day. 09/21/2025 Eliquis 5 mg tablet Take 1 tablet (5 mg total) by mouth 2 (two) times a day. 09/11/2025 09/24/2025 added in this encounter Additional Health Concerns Assessment Noted Time PHQ-9 Depression Total Score: 0 09/24/20 25 10:20 AM EST documented as of this encounter Care Teams Teacher Physically Impaired Relationship Specialty Start Date End Date Alvaro Shearer MD [address] [place] [address] PCP - General 05/25/23 documented as of this encounter
[2025-09-24 16:06] VITALS: BP 102/70; PULSE 84; O2SAT 97; BMI 27.7
--- NOTE | 2025-09-24 16:06 | HO.NEPHOV ---
Vital Signs 09/24/25 16:06 Height 4 ft 9 in Weight 128 lb BMI 27.7 BP 102/70 Blood Pressure Location Lt brachial Position Sitting Pulse 84 Pulse Source Pulse Oximeter Pulse Oximetry (%) 97 Oxygen Delivery Method Room Air Intake Visit Reasons[place] [facility] Renal Infarct Cafe Or Restaurant Manager Required: No Accompanied by: Self / Same As Patient Allergies Penicillins (PENICILLINS) Allergy (Unknown, Verified 09/24/25 16:07) HIVES Medication List - Last Reconciled 09/24/25 by Raoul Henriquez MD apixaban (Eliquis) 5 mg PO BID propranolol 20 mg (2 x 10 mg) PO BID 30 days rimegepant (Nurtec ODT) 75 mg PO Q2D PRN Held on 09/11/25. Instructions: Resume on 09/18/25. until seen by neurology HPI Comments Details: Young woman with a history of migraine recently admitted to hospital with right flank pain. CT scan showed evidence of a small right renal infarct. Urinalysis was benign. No hematuria. LDH was elevated. He was anticoagulated. Workup revealed a patent foramen ovale. She is here for follow-up. No specific complaints today. No pain not on any narcotics. No gross hematuria. No urinary symptoms. [facility] Medical History Headache, hemiplegic migraine Slurred speech Headache Social History Household Members: Spouse Housing: Apartment Do you presently have visiting nurse or other home services: No Alcohol intake: current Alcohol intake frequency: does not drink Comment: Social Patient Tobacco Use Status: Never used Tobacco service: No Physical Exam Vital Signs: Last Vital Signs Pulse 84 09/24/25 16:06 BP 102/70 09/24/25 16:06 Pulse Ox 97 09/24/25 16:06 Oxygen Delivery Method Room Air 09/24/25 16:06 BMI result Body Mass Index 27.7 Comfortable Neck supple no JVD. Lungs entry equal no rales. Heart S1-S2 heard no gallop or rub. Abdomen soft nontender. Neuro alert awake oriented. No asterixis. Extremities no edema. Results Reviewed Results Reviewed: CT scan IMPRESSION: 1. Widely patent systemic arterial system with no aneurysms or dissections. 2. The small area of right mid to upper renal infarct is again noted. This is likely due to distal small branch occlusion, however the underlying etiology is indeterminate. Nephrology Results: Hgb, (12.0-16.0) 12.3 g/dl 09/11/25 WBC, (4.8-10.8) 9.7 X10*3/uL 09/11/25 Plt Count, (160-400) 225 X10*3/uL 09/11/25 Sodium, (135-145) 140 mmol/L 09/11/25 Potassium, (3.3-5.1) 4.3 mmol/L 09/11/25 Chloride, (96-108) 109 mmol/L H 09/11/25 Carbon Dioxide, (22-29) 26 mmol/L 09/11/25 BUN, (9-16) 7 mg/dL L 09/11/25 Creatinine, (0.5-1.4) 0.59 mg/dL 09/11/25 Calcium, (8.4-10.2) 9.1 mg/dL 09/11/25 Urine Protein, (Neg-Trace) Negative mg/dL 09/10/25 Renal US 09/09/25 Assessment & Plan Assessment & Plan (1) Renal infarct: Code(s): N28.0 - Ischemia and infarction of kidney Category: Medical Plan At present renal function normal. She has no significant pain. Not on any in analgesics. Recently diagnosed patent foramen ovale Await for cardiology evaluation. Continue with the anticoagulation for now. Check renal panel and urinalysis along with urine protein creatinine ratio today. Orders: Orders Basic Metabolic Panel Today N28.0 - Ischemia and infarction of kidney Complete Blood Count no Diff Today N28.0 - Ischemia and infarction of kidney Creatinine Urine Today N28.0 - Ischemia and infarction of kidney UA and rflx microscopic Today N28.0 - Ischemia and infarction of kidney Total Protein Urine Random Today N28.0 - Ischemia and infarction of kidney Coding Level of Care Code Est Pt Level 4 (00375) Diagnoses Renal infarct N28.0
--- OUTSIDE RECORDS SUMMARY | 2025-09-24 22:06 | XMS_ITS | Clinical Summary ---
Author Organization [facility] [address] [place] [address] [place] [phone] Phone Care Team Providers Care Numerical Control Programmer Name Role Phone Alvaro Shearer MD Primary Care Provider Allergies Active Allergy Reactions Criticality Noted Date Comments Penicillins Rash 08/04/2016 Medications hydrOXYzine HCL (ATARAX) 10 mg tablet Take 1 Tablet by mouth 3 times daily as needed for Anxiety. 4 Active propranoloL (INDERAL) 10 mg tablet Take 1 tablet (10 mg total) by mouth 2 (two) times a day. 5 Active Nurtec 75 mg dispersible tablet Take 1 tablet (75 mg total) by mouth every other day. 5 Active Eliquis 5 mg tablet Take 1 tablet (5 mg total) by mouth 2 (two) times a day. 180 each 5 Active Eliquis 5 mg tablet Take 1 tablet (5 mg total) by mouth 2 (two) times a day. 5 09/24/20 25 Discontinu ed(Reorder ) Active Problems Problem Noted Date Diagnosed Date [...] breast 08/04/2016 JRA (juvenile rheumatoid art hritis) ([facility] V24, [facility] V28) 08/04/2016 Overview (10/20/2024): Mild pauciarticular JRA Vitamin D deficiency 08/04/2016 Encounters Date Type Department Care Team Description 09/24/2025 10:30 AM EST Office Visit Adult Medicine [address] [phone] Alvaro Shearer MD Hospital discharge follow-up (Primary Dx); 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); 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; Patent foramen ovale 09/14/2025 Telephone Adult Medicine [address] [phone] Alvaro Shearer MD 07/08/2025 Telephone Adult Medicine [address] [phone] Jessi Paulino MA from Last 3 Months Immunizations Immunization Administration Dates Next Due DTaP (Infanrix) 6wks to less than 7yo ,07/05/1999,1998,08/03,1998 [id number] (Pentacel) 2mo to less than 5yo 08/29/2000,04/04/1999,1998,05/31 [...] 12mo and older 05/05/2002,07/05/1999 Meningococcal MCV4P 07/30/2014,06/20/2010 PPD Test 11/12/2019, 0,10/23/2018,10/03 Tdap Tetanus diptheria acell ular pertussis (Boostrix; [...] COMMENT: 05/26 JRA (juvenile rheumatoid art hritis) ([facility] V24, [facility] V28) 08/04/2016 DX:JRA (juvenile rheumatoid arthritis) ([facility]); COMMENT: Mild pauciarticular JRA Family [...] care for your loved ones. For example, summer child caregiver or elderly care for an older adult? [...] Mass Index 27.35 09/24/2025 10:21 AM EST Plan of Treatment Upcoming Encounters Date Type Department Care Team (Late st Contact Info) Description 12/23/2025 8:30 AM EST Office Visit Adult Medicine [address] [phone] Alvaro Shearer MD [address] [place], [place] 01/26/2026 8:00 AM EDT Office Visit Adult Medicine [facility] [address] [place], [place] [phone] Aracely Wetzel PA [address] [place], [place] Health Maintenance Due Date Last Done Comments Pneumococcal Vaccine: Pediatrics (0 to 5 Years) and At-Risk Patients (6 to 49 Years) (1 of 2 - PCV) 2017 COVID-19 Vaccine (3 - Pfizer risk series) 08/10/2022 07/13/2022, 06/23/2022, 06/20/2022 Influenza Vaccine (#1) 2025 , 07/31/2023, 08/17/2022, Additional history exists Social Influencers of Health Screening 09/24/2026 09/24/2025 Cervical Cancer Screening: Pap Smear 11/13/2026 11/13/2023, [...] Screening Completed 10/03/2018 Gonorrhea/Chlamydia Screening Discontinued 11/13/2023 Depression Screening Completed 09/24/2025 Meningococcal B Vaccine Aged Out No l [...] Computed Tomogra phy us Provider [facility] PROCEDURES Final Result * Gonorrhea/Chlamydia Screening (11/13/2023) HM Gonorrhea/Chla mydia Screening abstracted us Historical Provider HEALTH MAINTENANCE Final Result * Pap smear (11/13/2023) 11/13/2023 Narrative HISTORICAL TESTING LAB RESULTING AGENCY - 11/23/2023 8:35 AM EST [id number] THINPREP PAP, IMAGED: NEGATIVE FOR SQUAMOUS INTRAEPITHELIAL LESION AND MALIGNANCY . MELIA HESS , CT(ASCP) (CASE ELECTRONICALLY SIGNED 11 22 2023) ADEQUACY: SATISFACTORY ENDOCERVICAL/TRANSFORMATION ZONE COMPONENT PRESENT. SOURCE: THINPREP PAP HPV IF ASCUS, CERVICAL, IMAGED CLINICAL INFORMATION: HPV IF DIAGNOSIS OF ASCUS. PAP HX NEGATIVE, [[id number]] Shannon Kay CN LAB CYTOLOGY ORDERABLES Final R esult HISTORICAL TESTING LAB RESULTING AGENCY * Lipid panel (07/31/2023) LDL/HDL Ratio 3 0 - 4 Triglycerides 54 0 - 150 mg/dL Cholesterol 153 0 - 200 mg/dL HDL 53 >=40 mg/dL LDL Cholesterol 90 0 - 100 mg/dL Blood Venous blood specimen / Unknown Result [facility] Historical Provider LAB BLOOD ORDERABLES Lucretia l Result * HIV Screening (10/03/2018) HIV Screening abstracted Historical Provider HEALTH MAINTENANCE Final Result * Hepatitis C Screening (10/03/2018) Hepatitis C Screening abstracted Historical Provider HEALTH MAINTENANCE Final Result from Last 3 Months or Most Recently Relevant to Health Maintenance Insurance [facility] Care Teams Numerical Control Programmer Relationship Specialty Start Date End Date Alvaro Shearer MD [address] [place], [place] PCP - General 05/25/23
== END ==
LOC: HO.HKA 16:05
PROVIDERS: Visit Provider Internal Medicine Hypertension Specialist
DX: N28.0 Ischemia and infarction of kidney (principal)
CPT/HCPCS: 99214